=== PATIENT | female | born 1955 | race Caucasian/White ===

== ENCOUNTER → 2019-10-20 13:04 | Outpatient (CLI) | payer MEDICARE, SELFPAY ==
[2019-10-20 14:03] LABS: Add Manual Diff / Slide Review NO; Basophils Absolute Auto 0 /uL (0-100); Basophils Percent Auto 0.8 % (0-2); Eosinophils Absolute Auto 200 /uL (0-450); Eosinophils Percent Auto 5.2 % (2-4); Hematocrit 44.6 % (36-46); Lymphocytes Absolute Auto 1200 /uL (1100-4500); Lymphocytes Percent Auto 25.5 % (25-40); Mean Corpuscular HGB Conc 35.8 % (30-36); Mean Corpuscular Hemoglobin 31.1 PG (26-34); Monocytes Absolute Auto 300 /uL (0-900); Monocytes Percent Auto 5.7 % (3-14); Neutrophils Absolute Auto 2900 /uL (1500-7000); Neutrophils Percent Auto 62.8 % (50-75); Platelet Count 249 X10^3/uL (150-400); Red Blood Cell Count 5.13 X10^6/uL (4.0-5.2); Red Cell Distribution Width 13.1 % (11.6-14.8); White Blood Cell Count 4.6 X10^3/uL (4.5-11.0)
[2019-10-20 15:59] LABS: Alanine Aminotransferase 19 IU/L (<35); Albumin 4.7 g/dL (3.5-5.0); Albumin Globulin Ratio 1.3 (1.0-2.8); Alkaline Phosphatase 57 U/L (38-126); Aspartate Aminotransferase 34 IU/L (14-36); BUN Creatinine Ratio 22.8 (6-22); Bilirubin Total 0.6 mg/dL (0.2-1.3); Blood Urea Nitrogen 18 mg/dL (7-17); Carbon Dioxide 29 mmol/L (22-32); Chloride 105 mmol/L (98-107); Creatine Kinase 161 U/L (30-135); Estimated Glomerular Filt Rate > 60.0 mL/min (>60); Globulin 3.7 g/dL (1.7-4.1); Glucose 118 mg/dL (80-110); HEMOLYSIS < 15 (0-50); Potassium 5.1 mmol/L (3.4-5.1); Sodium 138 mmol/L (137-145); Total Protein 8.4 g/dL (6.3-8.2)
[2019-10-20 16:02] LABS: C-Reactive Protein Quant < 0.5 mg/dL (<1.0)
[2019-10-20 16:12] LABS: CKMB % Relative Index 0.7 % (1.5-5.0); Creatine Kinase MB 1.15 ng/mL (<2.37)
[2019-10-20 18:22] LABS: Erythrocyte Sedimentation Rate 11 MM/HR (0-20)
[2019-10-22 11:10] LABS: Cholesterol, Total 242 mg/dL (100-199); HDL-Cholesterol 61 mg/dL (>39); HDL-Particle (Total) 46.1 umol/L (>=30.5); LDL Particle 1681 nmol/L (<1000); LDL Size 20.2 nm (>20.5); LDL-Cholsterol 138 mg/dL (0-99); LP-IR Score 74 (<=45); Small LDL- Particle 1058 nmol/L (<=527); Triglycerides 215 mg/dL (0-149)
== END ==
PROVIDERS: PCP Family Medicine; Referring Provider Specialist; Visit Provider Specialist
DX: R74.8 Abnormal levels of other serum enzymes (principal); I10 Essential (primary) hypertension; R00.2 Palpitations; E78.5 Hyperlipidemia, unspecified
CPT/HCPCS: 80053; 80061; 82550; 82553; 83704; 85025; 85651; 86140

== ENCOUNTER → 2020-05-14 11:34 | Outpatient (CLI) | payer MEDICARE, OTHER, SELFPAY ==
--- NOTE | 2020-05-14 | DI.MRI.S_ITS ---
PROCEDURE: MR HEAD/BRAIN WO CON INDICATIONS: ROUTINE SCREENING MAMMOGRAM,AMNESIA,POSTMENOPAUSAL TECHNIQUE: Non-contrast axial T1 spin echo, axial T2 fast spin echo, sagittal and axial FLAIR, coronal T2 fast spin echo, axial gradient echo, axial diffusion and ADC through the brain. COMPARISON: [facility], MR, BRAIN WITHOUT CONTRAST, 06/22/2015, 17:31. [facility], CT, HEAD WITHOUT CONTRAST, 06/07/2015, 12:18. FINDINGS: Image quality: Excellent. CSF spaces: Ventricles appear symmetric in size and shape. Basal cisterns are patent. No extra-axial fluid collections. Brain: No intracranial bleeds or mass effects. There is mild cerebral volume loss for age. There are mild periventricular and deep white matter chronic small vessel ischemic changes. Brainstem appears normal. Diffusion-weighted images show no acute ischemic insults. No chronic ischemic insults. Normal intravascular flow voids are present. Skull and face: Calvarial bone marrow is normal in signal. Orbits are normal. Sinuses: Sinuses and mastoids are clear. IMPRESSION: 1. No acute intracranial disease process.. Two. No areas of acute or chronic infarction. 3. No abnormal intracranial mass or mass effect. 4. Mild, diffuse cerebral volume loss. 5. Mild periventricular and subcortical white matter chronic microvascular ischemic change. Dictated by: Patrizia Melendez MD, PhD on 05/14/2020 at 15:40 Approved by: Patrizia Melendez MD, PhD on 05/14/2020 at 15:44
--- NOTE | 2020-05-14 | DI.MG.S_ITS ---
BILATERAL DIGITAL SCREENING MAMMOGRAM 3D/2D WITH CAD: 05/14/2020 CLINICAL: Routine screening. Comparison is made to exams dated: 03/29/2019 mammogram, 01/13/2018 mammogram, and 01/07/2017 mammogram - outside location. There are scattered fibroglandular elements in both breasts. Current study was also evaluated with a Computer Aided Detection (CAD) system. No significant masses, calcifications, or other findings are seen in either breast. There has been no significant interval change. IMPRESSION: NEGATIVE There is no mammographic evidence of malignancy. A 1 year screening mammogram is recommended. This exam was interpreted at Station ID: [id number]. NOTE: For mammograms, a report in lay terms will be sent to the patient. Approximately 15% of breast malignancies will not be visualized mammographically. In the management of a palpable breast mass, a negative mammogram must not discourage biopsy of a clinically suspicious lesion. Electronically Signed By: Rolf Valenzuela M.D. at/[place]:05/14/2020 15:59:30 letter sent: Normal Exam ACR BI-RADS Category 1: Negative 3341F
== END ==
PROVIDERS: PCP Family Medicine; Referring Provider Family Medicine; Visit Provider Family Medicine
DX: R41.3 Other amnesia (principal); Z12.31 Encounter for screening mammogram for malignant neoplasm of breast; M85.852 Other specified disorders of bone density and structure, left thigh; Z78.0 Asymptomatic menopausal state; Z82.62 Family history of osteoporosis
CPT/HCPCS: 70551; 77063; 77067; 77080

== ENCOUNTER → 2021-04-29 13:21 | Outpatient (CLI) | payer MEDICARE, OTHER, SELFPAY ==
[2021-04-29 16:35] LABS: COVID19 -Nasal RAPID Negative (Negative)
== END ==
PROVIDERS: PCP Family Medicine; Referring Provider Nurse Practitioner Family; Visit Provider Nurse Practitioner Family
DX: Z01.812 Encounter for preprocedural laboratory examination (principal); Z20.822 Contact with and (suspected) exposure to COVID-19
CPT/HCPCS: 87635; C9803

== ENCOUNTER 2021-04-30 13:25 | Day surgery (SDC) | payer MEDICARE, OTHER, SELFPAY ==
--- NOTE | 2021-04-30 13:45 | PM.HP.1 ---
History of Present Illness History of Present Illness Date Patient Seen: 04/30/21 Time Patient Seen: 13:45 Chief complaint: DX COLONOSCOPY W/POSS BX Narrative: Personal history of colon polyps here for colonoscopy. Asymptomatic. Patient History Medical History Abnormal Pap smear of cervix (1977) Ankle fracture (1959) Chicken pox (1955) Hypertension (2011) Mumps (1956) TGA (transient global amnesia) (05/2015) Surgical History Anesthesia History of section (1984) History of section (1986) History of section (1991) History of section (1993) History of dilation and curettage (1989) History of dilation and curettage (1991) Family & Social History Family History Father Cardiomyopathy Bladder cancer Heart disease Hypertension Stroke Cancer Mother Arthritis Vaginal cancer Cancer Mental health problem Brother Meniere's disease Sister No problems noted. Grandfather [place] (myocardial infarction) Heart disease Grandmother Kidney failure Review of Systems Review of Systems ROS: Yes All systems reviewed with the patient and are negative except as otherwise documented Exam Const General: cooperative and comfortable Orientation: alert HENMT Head: normocephalic Ears: external ears normal Nose: external nose normal Face and sinus: normal facial exam Mouth: oral mucosae normal Eyes General: appearance normal, both eyes and all related structures Neck Neck: normal visual inspection Chest Chest: normal inspection of the chest Resp Effort & Inspection: normal respiratory effort Cardio Rate: regular rate GI Inspection: normal to inspection Skin General: no rashes or lesions noted and No jaundice Neuro General: patient alert and moves all extremities Cognition: normal cognition Speech: speech normal Extrem General: no pedal edema Psych Appearance: grossly normal Assessment & Plan Assessment & Plan narrative: 65-year-old female with personal history of colon polyps. Colonoscopy is planned for today. Time Spent With Patient Critical Care time: I spent a total of [] minutes of critical care time on this patient's care today; this time is exclusive of procedural time.
--- NOTE | 2021-04-30 13:46 | PM.PREOP ---
Pre-operative Note COVID-19 COVID-19 status: Negative Result date/Date tested (Pos, Neg/Pending): 04/29/21 Interval Note History & Physical reviewed/Exam performed by Physician: Yes Changes to H&P: No ASA Class (for procedural sedation): II
[2021-04-30 13:49] VITALS: BP 161/92; PULSE 76; RESP 16; TEMP 37.1; O2SAT 99; BMI 24.7
[2021-04-30] MEDS: SODIUM CHLORIDE 0.9% 1,000 ML 84 ML IV (14:09)
--- NOTE | 2021-04-30 14:32 | PM.OP.COLON ---
Operative Date/Time/Diagnoses Date of procedure: 04/30/21 Time of procedure: 14:32 Pre-op diagnosis: Colon cancer screening personal history of colon polyps Post-op diagnosis: same Procedure & Clinicians Study performed: Colonoscopy Same procedure as scheduled: Yes Indications: Personal history of colon polyps Surgeon: Efrem Leavitt Procedure Notes SCOAP/Timeout: Done Procedure in detail: After the risks and benefits were explained, written and verbal informed consent was obtained. The patient was brought into the procedure room and placed into the left lateral decubitus position. Conscious sedation medication was applied as per nursing documentation. Digital rectal examination was accomplished. The scope was introduced into the patient and advanced under direct visualization to the cecum as identified by the appendiceal orifice and ileocecal valve. The scope was slowly withdrawn to carefully examine the mucosa for any defects or lesions. Comprehensive imaging was accomplished throughout the rectum including the dentate line. The colon was decompressed, the scope was then removed from the patient who tolerated the procedure well. Scope withdrawal time: 6 minutes Sedation minutes: 12 Specimen(s): none sent Complications: none Impression: Patient had moderate internal hemorrhoids with hypertrophied anal papillae. Grade 1. Diverticulosis was noted in the sigmoid. Otherwise no significant polyps mass lesions or inflammatory features identified throughout. Endoscopic diagnosis 1. Diverticulosis 2. Grade 1 hemorrhoids Post-procedure Recommendations: Colonoscopy in 5 years Plan for aftercare: Considering past history of colon polyps, repeat colonoscopy is suggested for 5 years time. Disposition: PACU
[2021-04-30 14:36] VITALS: BP 101/66; PULSE 72; RESP 14; TEMP 36.7; O2SAT 95
[2021-04-30 14:40] VITALS: BP 117/74; PULSE 70; RESP 10; O2SAT 96
[2021-04-30 14:45] VITALS: BP 112/74; PULSE 75; RESP 14; O2SAT 98
[2021-04-30 15:00] VITALS: BP 146/82; PULSE 64; RESP 11; TEMP 36.2; O2SAT 98
[2021-04-30 15:10] VITALS: BP 128/80; PULSE 67; RESP 11; O2SAT 99
== END 2021-04-30 15:20 | disposition home or self-care (01) ==
LOC: ENDO 13:27
PROVIDERS: PCP Family Medicine; Referring Provider Internal Medicine Gastroenterology; Visit Provider Internal Medicine Gastroenterology
PROC: 0DJD8ZZ Inspection of Lower Intestinal Tract, Via Natural or Artificial Opening Endoscopic (ICD-10-PCS; CPT 45378; principal; 2021-04-30 14:00)
DX: Z12.11 Encounter for screening for malignant neoplasm of colon (principal); Z86.010 Personal history of colon polyps; I10 Essential (primary) hypertension; K57.30 Diverticulosis of large intestine without perforation or abscess without bleeding; K64.0 First degree hemorrhoids
CPT/HCPCS: G0105; J2704

== ENCOUNTER → 2021-06-07 14:51 | Outpatient (CLI) | payer MEDICARE, OTHER, SELFPAY ==
--- NOTE | 2021-06-07 | DI.MG.S_ITS ---
BILATERAL DIGITAL SCREENING MAMMOGRAM 3D/2D WITH CAD: 06/07/2021 CLINICAL: Routine screening. Comparison is made to exams dated: 05/14/2020 mammogram - [facility], 03/29/2019 mammogram, and 01/13/2018 mammogram - outside location. There are scattered fibroglandular elements in both breasts. Current study was also evaluated with a Computer Aided Detection (CAD) system. No significant masses, calcifications, or other findings are seen in either breast. There has been no significant interval change. IMPRESSION: NEGATIVE There is no mammographic evidence of malignancy. A 1 year screening mammogram is recommended. This exam was interpreted at Station ID: [id number]. NOTE: For mammograms, a report in lay terms will be sent to the patient. Approximately 15% of breast malignancies will not be visualized mammographically. In the management of a palpable breast mass, a negative mammogram must not discourage biopsy of a clinically suspicious lesion. Electronically Signed By: Rolf clemons/[place]:06/07/2021 18:00:46 letter sent: Normal Exam ACR BI-RADS Category 1: Negative 3341F
== END ==
PROVIDERS: PCP Family Medicine; Referring Provider Family Medicine; Visit Provider Family Medicine
DX: Z12.31 Encounter for screening mammogram for malignant neoplasm of breast (principal)
CPT/HCPCS: 77063; 77067

== ENCOUNTER 2022-04-15 14:45 | Observation (INO) | payer MEDICARE, OTHER, SELFPAY ==
[2022-04-15] VITALS (9 sets, daily range): BP systolic 136–173; BP diastolic 85–107; PULSE 70–117; RESP 16–24; TEMP 36.6–36.8; O2SAT 95–98; BMI 25.2
--- NOTE | 2022-04-15 15:26 | DI.CT.S_ITS ---
PROCEDURE: CT STROKE INDICATIONS: Altered mental status TECHNIQUE: Noncontrast 4.5 mm thick angled axial sections acquired from the foramen magnum to the vertex, with coronal reformats. For radiation dose reduction, the following was used: automated exposure control, adjustment of mA and/or kV according to patient size. COMPARISON: [facility], CT, HEAD WITHOUT CONTRAST, 06/07/2015, 12:18. FINDINGS: Image quality: Excellent. CSF spaces: Basal cisterns are patent. No extra-axial fluid collections. Ventricles are normal in size and shape. Brain: No midline shift. No intracranial masses or hemorrhage. Funez-white matter interface is normal. Punctate calcifications are redemonstrated within the bilateral caudate lobes. Skull and face: Calvarium and visualized facial bones are intact, without suspicious lesions. Sinuses: Visualized sinuses and mastoids are clear. IMPRESSION: 1. No acute intracranial findings. These findings were discussed with Dr. Rajput at 3:44 p.m. On April 15, 2022. This study fulfills neurological imaging criteria for inclusion or exclusion of acute stroke therapies based on available published neurological imaging guidelines. Dictated by: Urvashi Nix M.D. on 04/15/2022 at 15:41 Approved by: Urvashi Nix M.D. on 04/15/2022 at 15:44
--- NOTE | 2022-04-15 15:28 | ED.NEUROSD ---
HPI - Neuro Symptoms/Deficit General Chief Complaint: Neuro Symptoms/Deficit Stated Complaint: global amnesia event Time Seen by Provider: 04/15/22 15:26 History of Present Illness HPI Narrative: Blood sugar done by triage nurse. Please see notes. Patient brought here by for altered mental status/repeating questions onset at 1:00 p.m. this afternoon 1.5 hours ago. Patient and were at patient's mother's today it was expected. Patient states she does recall driving to the but does not recall anything from the . Nor does she remember anything from [place] 2 days ago. Her symptoms are improving according to . Patient had similar event in the past with transient global amnesia, she was working out at the gym and had called a friend and had repeated the same sentences over and over again. No prior history of TIA or stroke. Patient states not been under a lot of stress for mother's , she was actually happy for the to celebrate her life. However she does not remember Dr. Collins being at the or talking to him. She denies any headache. No history of seizure activity or past seizures. No drugs or alcohol. Patient in no distress and speaking calmly. Fast exam is negative. Code stroke was activated. On Anticoagulants: No Related Data Home Medications Medication Instructions Recorded Confirmed aspirin 81 mg tablet,delayed 81 mg PO DAILY 04/30/21 04/15/22 release latanoprost 0.005 % eye drops 1 drp EYE-BOTH DAILY 04/30/21 04/15/22 lisinopril 5 mg tablet 5 mg PO DAILY 04/30/21 04/15/22 dorzolamide 22.3 mg-timolol 6.8 1 drp EYE-BOTH BID 04/15/22 04/15/22 mg/mL eye drops ezetimibe 10 mg tablet 10 mg PO DAILY 04/15/22 04/15/22 Allergies Allergy/AdvReac Type Severity Reaction Status Date / Time No Known Drug Allergies Allergy Verified 04/30/21 13:49 Review of Systems Review of Systems Narrative: GENERAL: negative chills, fatigue, malaise, fever, sweats. HEENT: negative sinus pain, ear pain, sore throat RESPIRATORY: negative dyspnea, cough CARDIOVASCULAR: negative chest pain, palpitations GASTROINTESTINAL: negative nausea, vomiting, abdominal pain : negative dysuria, frequency, hematuria MUSCULOSKELETAL: negative muscle or bony pain SKIN: negative rash, skin lesions NEUROLOGIC: negative weakness, numbness, positive altered mental status, negative slurred speech negative headache negative facial droop ROS Unobtainable: All systems reviewed & are unremarkable except as noted in HPI and below Hematologic/Lymphatic On Anticoagulants: No Patient History Medical History Abnormal Pap smear of cervix (1977) Ankle fracture (1959) Chicken pox (1955) Hypertension (2011) Mumps (1956) TGA (transient global amnesia) (05/2015) Surgical History Anesthesia History of section (1984) History of section (1986) History of section (1991) History of section (1993) History of dilation and curettage (1989) History of dilation and curettage (1991) Family History Father Cardiomyopathy Bladder cancer Heart disease Hypertension Stroke Cancer Mother Arthritis Vaginal cancer Cancer Mental health problem Brother Meniere's disease Sister No problems noted. Grandfather HI (myocardial infarction) Heart disease Grandmother Kidney failure Social History household members: spouse Smoking Status: Never smoker alcohol intake: never Smoking Status: Never smoker Substance Use Type: does not use Exam Narrative Exam Narrative: GENERAL: in no distress, not toxic not dyspneic HEAD: Normocephalic. EYES: Pupils equal round No scleral icterus. PERRLA ENT: Mucous membranes moist. NECK: Trachea midline. CARDIOVASCULAR: Regular rate and rhythm without murmurs RESPIRATORY: Clear to auscultation. Breath sounds equal bilaterally. No wheezes, rales, or rhonchi. GASTROINTESTINAL: Abdomen soft, non-tender EXTREMITIES: No gross deformities. BACK: No flank tenderness. NEURO: AOx4.Clear speech no facial droop. ?Light touch intact to bilateral face hands and legs. ?Strong equal [facility] bilaterally and ankle flexion hip flexion and knee flexion. ?Strong bilateral patellar reflexes. ?No pronator drift. ?Finger to nose intact bilaterally SKIN: Warm and dry PSYCH: Not anxious, is cooperative Initial Vital Signs Initial Vital Signs: Vital Signs Temperature 98.3 F 04/15/22 15:15 Pulse Rate 70 04/15/22 15:15 Respiratory Rate 16 04/15/22 15:15 Blood Pressure 173/107 H 04/15/22 15:15 Pulse Oximetry 98 04/15/22 15:15 Oxygen Delivery Method 04/15/22 15:15 Scores NIH Stroke Scale Level of Conciousness: Alert, keenly responsive Ask month/age: Answers both questions correctly. Open/close eyes, close hand: Performs both tasks correctly Best gaze horizontal: Normal Visual beard: No visual loss Facial palsy: Normal symetrical movement Left arm drift: No drift for full 10 sec Right arm drift: No drift for full 10 sec Left leg drift: No drift for full 5 sec Right leg drift: No drift for full 5 sec Limb ataxia: Absent Sensory on face/arms/legs: Normal, no sensory loss Best language: No aphasia, normal Dysarthria: Normal Extinction or inattention: No abnormality Total NIH Stroke scale score: 0 Course Course Course Narrative: No new issues during course of stay 3:44 p.m.. Spoke with radiologist, head CT without contrast no acute process. Decision to Admit Date: 04/15/22 Decision to Admit time: 15:33 Orders Ordered: Discontinued Medications Acetaminophen (Acetaminophen 325 Mg Tablet) 650 mg PO Q6H PRN PRN Reason: Fever/Mild Pain (1-3) Aspirin (Aspirin Ec 81 Mg Tablet) 81 mg PO DAILY [facility] Last Admin: 04/16/22 08:39 Dose: 81 mg Documented By: JOSE Atorvastatin Calcium (Atorvastatin 20 Mg Tablet) 40 mg PO BEDTIME [facility] Last Admin: 04/15/22 20:14 Dose: 40 mg Documented By: OSCAR Enoxaparin Sodium (Enoxaparin 40 Mg/0.4 Ml Syringe) 40 mg SUBCUT DAILY [facility] Last Admin: 04/16/22 08:39 Dose: 40 mg Documented By: JOSE Thiamine HCl 500 mg/ Sodium (Chloride) 105 mls @ 420 mls/hr IV NOW ONE Stop: 04/15/22 17:46 Last Admin: 04/15/22 18:36 Dose: 420 mls/hr Documented By: YAZMIN Metoprolol Tartrate (Metoprolol Tartrate 5 Mg/5 Ml Inj) 5 mg IV Q15M PRN PRN Reason: Tachyarrhythmias Stop: 04/15/22 21:31 Metoprolol Tartrate (Metoprolol Tartrate 5 Mg/5 Ml Inj) 5 mg IV Q15M PRN PRN Reason: SBP > 180, DBP > 100, HR > 110 sustained > 30m Ondansetron HCl (Ondansetron 4 Mg/2 Ml Inj) 4 mg IV Q8HR PRN PRN Reason: Nausea And Vomiting Sodium Chloride (Sodium Chloride 0.9% Flush) 10 ml IV PRN PRN PRN Reason: Flush Sodium Chloride (Sodium Chloride 0.9% Flush) 10 ml IV BID [facility] Last Admin: 04/16/22 08:49 Dose: Not Given Documented By: CLL Reevaluation(s) Reevaluation #1: Reassessment of patient. Patient and state not worsening symptoms but not improving. Patient does not recall going to CAT scan imaging. Still no motor numbness tingling weakness or slurred speech or facial droop. Only memory loss Time: 16:32 Reevaluation #2: Updated patient and results. Patient is slowly improving with her repeating sentences and questions. They do understand agree for admit for observation and balance of workup including echocardiogram and MRI of the brain Time: 17:45 Consultations Consultation #1: Spoke with Dr. Koroma, [facility] stroke team/neurology. At this time will hold on tPA. He will review with his attending provider. CT head and angiogram have been sent to their facility. Time: 16:32 Consultation #2: Spoke with Dr. Koroma, tele stroke, he has reviewed with his attending, this is likely not TIA/stroke. However patient could be admitted for observation MRI echo in the morning. Patient can have outpatient referral for EEG to be done. One of the differential diagnosis includes seizure. Regarding the left MCA aneurysm can be followed up with neurosurgical services. Patient is not tPA candidate Time: 16:43 Consultation #3: Spoke with hospitalist, dr goldberg, will admit patient, recommends thiamine 500 mg IV Vital Signs Vital signs: Vital Signs - 8 hr 04/15/22 15:15 04/15/22 16:30 04/15/22 17:00 Temperature 98.3 F Pulse Rate 70 106 H 103 H Respiratory Rate 16 18 20 Blood Pressure 173/107 H 137/87 143/85 H Pulse Oximetry 98 97 97 Oxygen Delivery Method Room Air Room Air Room Air 04/15/22 17:33 Temperature Pulse Rate 102 H Respiratory Rate 18 Blood Pressure 143/90 H Pulse Oximetry 98 Oxygen Delivery Method Room Air MDM - Neuro Symptoms/Deficit Differential Diagnosis Differential diagnosis: Likely subarachnoid hemorrhage, cerebrovascular accident, transient cerebral ischemia and other (Transient global amnesia/seizure/anxiety) Lab Data Result diagrams: 04/16/22 02:07 04/16/22 02:07 Labs: Lab Results 04/15/22 04/15/22 04/15/22 Range/Units 15:25 15:25 15:25 WBC 5.8 (4.5-11.0) X10^3/uL RBC 4.97 (4.0-5.2) X10^6/uL Hgb 15.3 (12.0-16.0) g/dL Hct 43.5 (36-46) % MCV 87.5 (80-100) fL MCH 30.8 (26-34) PG MCHC 35.2 (30-36) % RDW 13.2 (11.6-14.8) % Plt Count 282 (150-400) X10^3/uL Neut % (Auto) 60.5 (50-75) % Lymph % (Auto) 27.9 (25-40) % Crosby % (Auto) 6.6 (3-14) % Eos % (Auto) 4.3 H (2-4) % Baso % (Auto) 0.7 (0-2) % Neut # (Auto) 3500 (4915-8416) /uL Lymph # (Auto) 1600 (1145-5905) /uL Crosby # (Auto) 400 (0-900) /uL Eos # (Auto) 300 (0-450) /uL Baso # (Auto) 0 (0-100) /uL PT 11.8 (10.1-12.7) SECONDS INR 1.0 (0.9-1.3) APTT 31 (26-36) SECONDS Sodium 139 (137-145) mmol/L Potassium 4.1 (3.4-5.1) mmol/L Chloride 100 (98-107) mmol/L Carbon Dioxide 26 (22-32) mmol/L BUN 14 (7-17) mg/dL Creatinine 0.71 (0.52-1.04) mg/dL Estimated GFR > 60 (>60) mL/min BUN/Creatinine Ratio 19.7 (6-22) Glucose 102 (80-110) mg/dL Calcium 9.1 (8.4-10.2) mg/dL Total Bilirubin 0.5 (0.2-1.3) mg/dL AST 34 (14-36) IU/L ALT 27 (<35) IU/L Alkaline Phosphatase 78 (38-126) U/L Total Creatine Kinase 125 (30-135) U/L CK-MB (CK-2) 0.97 (<2.37) ng/mL CK-MB (CK-2) Rel Index 0.8 L (1.5-5.0) % Troponin I < 0.012 (0.01-0.034) ng/mL Total Protein 9.1 H (6.3-8.2) g/dL Albumin 4.8 (3.5-5.0) g/dL Globulin 4.3 H (1.7-4.1) g/dL Albumin/Globulin Ratio 1.1 (1.0-2.8) Urine Color Urine Appearance Urine pH (4.5-8.0) Ur Specific [place] (1.000-1.035) Urine Protein (Negative) Urine Glucose (UA) (Negative) g/dL Urine Ketones (NEGATIVE) Urine Occult Blood (Negative) Urine Nitrate (Negative) Urine Bilirubin (NEGATIVE) Urine Urobilinogen (0.2) E.U./dL Ur Leukocyte Esterase (NEGATIVE) Urine RBC (0-5/HPF) Urine WBC (0-5/HPF) Ur Squamous Epith Cells (0-5/HPF) Urine Bacteria (None) Ur Culture Indicated? 04/15/22 Range/Units 17:35 WBC (4.5-11.0) X10^3/uL RBC (4.0-5.2) X10^6/uL Hgb (12.0-16.0) g/dL Hct (36-46) % MCV (80-100) fL MCH (26-34) PG MCHC (30-36) % RDW (11.6-14.8) % Plt Count (150-400) X10^3/uL Neut % (Auto) (50-75) % Lymph % (Auto) (25-40) % Crosby % (Auto) (3-14) % Eos % (Auto) (2-4) % Baso % (Auto) (0-2) % Neut # (Auto) (0063-2964) /uL Lymph # (Auto) (0283-9361) /uL Crosby # (Auto) (0-900) /uL Eos # (Auto) (0-450) /uL Baso # (Auto) (0-100) /uL PT (10.1-12.7) SECONDS INR (0.9-1.3) APTT (26-36) SECONDS Sodium (137-145) mmol/L Potassium (3.4-5.1) mmol/L Chloride (98-107) mmol/L Carbon Dioxide (22-32) mmol/L BUN (7-17) mg/dL Creatinine (0.52-1.04) mg/dL Estimated GFR (>60) mL/min BUN/Creatinine Ratio (6-22) Glucose (80-110) mg/dL Calcium (8.4-10.2) mg/dL Total Bilirubin (0.2-1.3) mg/dL AST (14-36) IU/L ALT (<35) IU/L Alkaline Phosphatase (38-126) U/L Total Creatine Kinase (30-135) U/L CK-MB (CK-2) (<2.37) ng/mL CK-MB (CK-2) Rel Index (1.5-5.0) % Troponin I (0.01-0.034) ng/mL Total Protein (6.3-8.2) g/dL Albumin (3.5-5.0) g/dL Globulin (1.7-4.1) g/dL Albumin/Globulin Ratio (1.0-2.8) Urine Color Yellow Urine Appearance Clear Urine pH 7.0 (4.5-8.0) Ur Specific [place] <=1.005 (1.000-1.035) Urine Protein Negative (Negative) Urine Glucose (UA) Negative (Negative) g/dL Urine Ketones Negative (NEGATIVE) Urine Occult Blood Negative (Negative) Urine Nitrate Negative (Negative) Urine Bilirubin Negative (NEGATIVE) Urine Urobilinogen 0.2 (0.2) E.U./dL Ur Leukocyte Esterase Trace H (NEGATIVE) Urine RBC 0-1/hpf (0-5/HPF) Urine WBC None seen (0-5/HPF) Ur Squamous Epith Cells 0-1 /hpf (0-5/HPF) Urine Bacteria None seen (None) Ur Culture Indicated? Cult not indicated Point of Care Testing Glucose POC [address] scan - head: Radiologist's Impression: [address] [address] [address] Scan Report Signed Patient: Kana Davis MR#: [id number] : 1955 Acct:[id number] Age/Sex: 66 / F Date of Service: 04/15/22 Loc: ED Accession Number: [id number] ?? Procedure: CT Stroke Ordering Provider: Nikolai Rajput MD PROCEDURE:? CT STROKE ? INDICATIONS:? Altered mental status ? TECHNIQUE:? Noncontrast 4.5 mm thick angled axial sections acquired from the foramen magnum to the vertex, with coronal reformats.? For radiation dose reduction, the following was used:? automated exposure control, adjustment of mA and/or kV according to patient size.? ? COMPARISON:? [facility], CT, HEAD WITHOUT CONTRAST, 06/07/2015, 12:18. ? FINDINGS:? Image quality:? Excellent.? ? CSF spaces:? Basal cisterns are patent.? No extra-axial fluid collections.? Ventricles are normal in size and shape.? ? Brain:? No midline shift.? No intracranial masses or hemorrhage.? Funez-white matter interface is normal.? Punctate calcifications are redemonstrated within the bilateral caudate lobes. ? Skull and face:? Calvarium and visualized facial bones are intact, without suspicious lesions.? ? Sinuses:? Visualized sinuses and mastoids are clear.? ? IMPRESSION:? ? 1. No acute intracranial findings. ? These findings were discussed with Dr. Rajput at 3:44 p.m. On April 15, 2022.? ? This study fulfills neurological imaging criteria for inclusion or exclusion of acute stroke therapies based on available published neurological imaging guidelines.? ? ? Dictated by: Urvashi Nix M.D. on 04/15/2022 at 15:41 ? ? Approved by: Urvsahi Nix M.D. on 04/15/2022 at 15:44 ? CTA - brain/neck: Radiologist's Impression: [address] [address] [address] Scan Report Signed Patient: Kana Davis MR#: [id number] : 1955 Acct:[id number] Age/Sex: 66 / F Date of Service: 04/15/22 Loc: ED Accession Number: [id number] ?? Procedure: CT angio head and neck Ordering Provider: Nikolai Rajput MD PROCEDURE:? CT ANGIO HEAD AND NECK ? INDICATIONS:? Altered mental status ? TECHNIQUE:? After the administration of intravenous contrast, 1 mm thick sections acquired from the aortic arch through the [place] of [place].? Post-contrast 4.5 mm thick sections then re-acquired from the foramen magnum to the vertex.? 3-dimensional dhrehop-ybbxlixdc-pplxwegxty (MIP) and/or volume rendering reformats were acquired of the central intracranial vasculature and neck separately. For radiation dose reduction, the following was used:? automated exposure control, adjustment of mA and/or kV according to patient size.? ? COMPARISON:? [facility], CT, CT STROKE, 04/15/2022, 15:33. ? FINDINGS:? Image quality:? Excellent.? ? BRAIN:? CSF spaces:? Ventricles are normal in size and shape.? Basal cisterns are patent.? No extra-axial fluid collections.? ? Brain:? No midline shift.? No intracranial bleeds or masses.? Funez-white matter interface appears intact.? ? Skull and face:? Calvarium and facial bones appear intact, without suspicious lesions.? Orbits appear normal.? ? Sinuses:? Sinuses and mastoids are clear.? ? HEAD CT ANGIOGRAPHY:? Anterior circulation:? Intracranial internal carotid arteries are normal in size and flow.? 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 Normal flow in the anterior communicating artery.? The flow within the paired anterior cerebral arteries is normal and symmetric.? The flow within the middle cerebral arteries is normal and symmetric.? 4 millimeter aneurysm noted at the left middle cerebral artery trifurcation.? ? Posterior circulation:? Visualized portions of the vertebral arteries demonstrate normal caliber.? Left vertebral artery terminates in a left posterior inferior cerebral artery which is a congenital anatomic variant.? Normal flow in the basilar artery.? Flow within the posterior cerebral arteries is normal and symmetric.? Right and left posterior cerebral arteries have origins which is a congenital anatomic variant.? No aneurysms are seen. ? Dural sinuses demonstrate normal postcontrast enhancement. ? ? NECK CT ANGIOGRAPHY:? Carotid system:? The great vessels demonstrate a conventional anatomy as they arise from the aortic arch.? The origins of the common carotid arteries appear patent.? The common carotid arteries demonstrate normal caliber and courses.? The bifurcation regions are both widely patent.? The internal carotid arteries demonstrate normal calibers and courses.? ? Posterior circulation:? The origins of the vertebral arteries both appear widely patent.? The more superior extracranial portions of both vertebral arteries also demonstrate normal courses and calibers.? Patient is right vertebral artery dominant.? Left vertebral artery terminates in a left posterior inferior cerebral artery. ? Soft tissues:? Visualized neck soft tissues demonstrate no suspicious abnormalities.? ? Bones:? No suspicious bony lesions.? Visualized cervical spine appears normally aligned.? Spine degenerative disc disease and facet arthropathy. ? ? IMPRESSION:? ? 1. No acute intracranial disease process. ? 2. No large vessel occlusion, hemodynamically significant vascular stenosis or vascular dissection. ? 3.? 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 Recommend neurosurgical consultation. ? ? Any quantitative measurements of stenosis were performed using NASCET criteria.? ? ? Dictated by: Patrizia Melendez MD, PhD on 04/15/2022 at 15:57 ? ? Approved by: Patrizia Melendez MD, PhD on 04/15/2022 at 16:07 ? ECG Data Interpretation: Sinus tachycardia rate 105 otherwise normal EKG no ST elevation or depression MDM Narrative Medical decision making narrative: Appropriate for admission. Patient is still symptomatic but is improving. Will need balance of workup including echocardiogram and MRI brain. Spoke with patient and and agree for admit. I did review with hospitalist agrees for balance of workup. Discharge Plan Departure Patient Disposition: Admitted as Observation Clinical Impression: Transient global amnesia Admit Date/Time: 04/15/22 17:45 Admit Provider: José Miguel Goldberg
[2022-04-15 15:38] LABS: Add Manual Diff / Slide Review NO; Basophils Absolute Auto 0 /uL (0-100); Basophils Percent Auto 0.7 % (0-2); Eosinophils Absolute Auto 300 /uL (0-450); Eosinophils Percent Auto 4.3 % (2-4); Hematocrit 43.5 % (36-46); Hemoglobin 15.3 g/dL (12.0-16.0); Lymphocytes Absolute Auto 1600 /uL (1100-4500); Lymphocytes Percent Auto 27.9 % (25-40); Mean Corpuscular HGB Conc 35.2 % (30-36); Mean Corpuscular Hemoglobin 30.8 PG (26-34); Mean Corpuscular Volume 87.5 fL (80-100); Monocytes Absolute Auto 400 /uL (0-900); Monocytes Percent Auto 6.6 % (3-14); Neutrophils Absolute Auto 3500 /uL (1500-7000); Neutrophils Percent Auto 60.5 % (50-75); Platelet Count 282 X10^3/uL (150-400); Red Blood Cell Count 4.97 X10^6/uL (4.0-5.2); Red Cell Distribution Width 13.2 % (11.6-14.8); White Blood Cell Count 5.8 X10^3/uL (4.5-11.0)
--- NOTE | 2022-04-15 15:38 | DI.CT.S_ITS ---
PROCEDURE: CT ANGIO HEAD AND NECK INDICATIONS: Altered mental status TECHNIQUE: After the administration of intravenous contrast, 1 mm thick sections acquired from the aortic arch through the [place] of [place]. Post-contrast 4.5 mm thick sections then re-acquired from the foramen magnum to the vertex. 3-dimensional baqrspc-hhemtyslv-lhwwfznffu (MIP) and/or volume rendering reformats were acquired of the central intracranial vasculature and neck separately. For radiation dose reduction, the following was used: automated exposure control, adjustment of mA and/or kV according to patient size. COMPARISON: [facility], CT, CT STROKE, 04/15/2022, 15:33. FINDINGS: Image quality: Excellent. BRAIN: CSF spaces: Ventricles are normal in size and shape. Basal cisterns are patent. No extra-axial fluid collections. Brain: No midline shift. No intracranial bleeds or masses. Funez-white matter interface appears intact. Skull and face: Calvarium and facial bones appear intact, without suspicious lesions. Orbits appear normal. Sinuses: Sinuses and mastoids are clear. HEAD CT ANGIOGRAPHY: Anterior circulation: Intracranial internal carotid arteries are normal in size and flow. 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 Normal flow in the anterior communicating artery. The flow within the paired anterior cerebral arteries is normal and symmetric. The flow within the middle cerebral arteries is normal and symmetric. 4 millimeter aneurysm noted at the left middle cerebral artery trifurcation. Posterior circulation: Visualized portions of the vertebral arteries demonstrate normal caliber. Left vertebral artery terminates in a left posterior inferior cerebral artery which is a congenital anatomic variant. Normal flow in the basilar artery. Flow within the posterior cerebral arteries is normal and symmetric. Right and left posterior cerebral arteries have origins which is a congenital anatomic variant. No aneurysms are seen. Dural sinuses demonstrate normal postcontrast enhancement. NECK CT ANGIOGRAPHY: Carotid system: The great vessels demonstrate a conventional anatomy as they arise from the aortic arch. The origins of the common carotid arteries appear patent. The common carotid arteries demonstrate normal caliber and courses. The bifurcation regions are both widely patent. The internal carotid arteries demonstrate normal calibers and courses. Posterior circulation: The origins of the vertebral arteries both appear widely patent. The more superior extracranial portions of both vertebral arteries also demonstrate normal courses and calibers. Patient is right vertebral artery dominant. Left vertebral artery terminates in a left posterior inferior cerebral artery. Soft tissues: Visualized neck soft tissues demonstrate no suspicious abnormalities. Bones: No suspicious bony lesions. Visualized cervical spine appears normally aligned. Spine degenerative disc disease and facet arthropathy. IMPRESSION: 1. No acute intracranial disease process. 2. No large vessel occlusion, hemodynamically significant vascular stenosis or vascular dissection. 3. 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 Recommend neurosurgical consultation. Any quantitative measurements of stenosis were performed using NASCET criteria. Dictated by: Patrizia Melendez MD, PhD on 04/15/2022 at 15:57 Approved by: Patrizia Melendez MD, PhD on 04/15/2022 at 16:07
[2022-04-15 15:58] LABS: Prothrombin Time 11.8 SECONDS (10.1-12.7)
[2022-04-15 16:00] LABS: PTT Partial Thromboplastin Tim 31 SECONDS (26-36)
[2022-04-15 16:13] LABS: Alanine Aminotransferase 27 IU/L (<35); Albumin 4.8 g/dL (3.5-5.0); Albumin Globulin Ratio 1.1 (1.0-2.8); Alkaline Phosphatase 78 U/L (38-126); Aspartate Aminotransferase 34 IU/L (14-36); BUN Creatinine Ratio 19.7 (6-22); Bilirubin Total 0.5 mg/dL (0.2-1.3); Blood Urea Nitrogen 14 mg/dL (7-17); Calcium 9.1 mg/dL (8.4-10.2); Carbon Dioxide 26 mmol/L (22-32); Chloride 100 mmol/L (98-107); Creatine Kinase 125 U/L (30-135); Estimated Glomerular Filt Rate > 60 mL/min (>60); Globulin 4.3 g/dL (1.7-4.1); Glucose 102 mg/dL (80-110); HEMOLYSIS < 15 (0-50); Potassium 4.1 mmol/L (3.4-5.1); Sodium 139 mmol/L (137-145); Total Protein 9.1 g/dL (6.3-8.2)
[2022-04-15 16:24] LABS: Troponin I < 0.012 ng/mL (0.01-0.034)
[2022-04-15 16:28] LABS: CKMB % Relative Index 0.8 % (1.5-5.0); Creatine Kinase MB 0.97 ng/mL (<2.37)
[2022-04-15 17:53] LABS: Appearance Urine UA CLEAR; Bilirubin Urine UA NEGATIVE (NEGATIVE); Color Urine UA YELLOW; Glucose Urine UA NEGATIVE (Negative); Ketones Urine UA NEGATIVE (NEGATIVE); Leukocyte Esterase Urine UA TRACE (NEGATIVE); Nitrite Urine UA NEGATIVE (Negative); Occult Blood Urine UA NEGATIVE (Negative); Protein Urine UA NEGATIVE (Negative); Specific Gravity Urine UA <=1.005 (1.000-1.035); Urobilinogen Urine UA 0.2 E.U./dL (0.2)
--- NOTE | 2022-04-15 17:53 | DI.MRI.S_ITS ---
PROCEDURE: MR HEAD/BRAIN WO CON INDICATIONS: TIA TECHNIQUE: Non-contrast axial T1 spin echo, axial T2 fast spin echo, sagittal and axial FLAIR, coronal T2 fast spin echo, axial gradient echo, axial diffusion and ADC through the brain. COMPARISON: [facility], CT, CT ANGIO HEAD AND NECK, 04/15/2022, 15:33. [facility], CT, CT STROKE, 04/15/2022, 15:33. FINDINGS: Image quality: Excellent. CSF spaces: Ventricles appear symmetric in size and shape. Basal cisterns are patent. No extra-axial fluid collections. Brain: No intracranial bleeds or mass effects. There is cerebral volume loss for age. There are periventricular and deep white matter chronic small vessel ischemic changes. Brainstem appears normal. Diffusion-weighted images show no acute ischemic insults. No chronic ischemic insults. Normal intravascular flow voids are present. Skull and face: Calvarial bone marrow is normal in signal. Orbits are normal. Sinuses: Sinuses and mastoids are clear. IMPRESSION: No findings of acute or subacute infarction can be seen. Note is made of age-appropriate brain parenchymal volume loss and chronic small vessel ischemic changes. Dictated by: Cedrick Harris M.D. on 04/15/2022 at 17:37 Approved by: Cedrick Harris M.D. on 04/15/2022 at 17:39
[2022-04-15 18:16] LABS: RBC Urine 0-1/HPF (0-5/HPF); Squamous Epithelial Cell Urine 0-1 /HPF (0-5/HPF); WBC Urine None Seen (0-5/HPF)
[2022-04-15 18:17] LABS: Bacteria Urine None Seen; Culture Indicated Urine Cult Not Indicated
--- NOTE | 2022-04-15 18:30 | DI.ECHO.S_ITS ---
[facility] +---------+ : : [address] : : : : [id number] : : : : Phone: [phone]+ Echocardiogram Report + + :Name: SHAWANDA ROMERO Study Date: 04/16/2022 Height: 62 in : :[facility] ReadingLocation: Weight: 137 lb : : Gender: Female BSA: 1.6 m2 : :: 1955 Age: 66 yrs BP: 136/89 mmHg: :Reason For Study: TIA : :Ordering Physician: LOBO, : :CARLINE Performed By: Jada Parsons : :Referring: CARLINE DIAMOND : + + Interpretation Summary The patient was in sinus rhythm with heart rates between 74-81 bpm during the exam. The left ventricle is normal in size and wall thickness. There is no thrombus. The ejection fraction is estimated to be 55-60%. The right ventricle is normal in size and function. No significant valvular pathology seen. There is no Doppler evidence for an interatrial shunt. Injection of contrast documented no interatrial shunt. No significant atherosclerotic plaque seen in the aortic arch. The IVC is of normal diameter and collapses greater than 50% with a sniff. This suggests a low right atrial pressure of 3 mm Hg. Procedure: A two-dimensional transthoracic echocardiogram with color flow and Doppler was performed. The study quality was technically adequate. A saline contrast injection was performed to assess for cardiac shunting. Comparison is made with the echocardiogram of 01/08/2017. The patient was in sinus rhythm with heart rates between 74-81 bpm during the exam. Left Ventricle: The left ventricle is normal in size and wall thickness. There is no thrombus. The ejection fraction is estimated to be 55-60%. There are no focal wall motion abnormalities. Diastolic parameters suggest a relaxation abnormality of the left ventricle, consistent with probable normal filling pressures. Right Ventricle: The right ventricle is normal in size and function. Atria: The left atrial size is normal. Right atrial size is normal. There is no Doppler evidence for an interatrial shunt. Injection of contrast documented no interatrial shunt. Mitral Valve: The mitral valve is normal in structure and function. There is trace mitral regurgitation. Aortic Valve: The aortic valve is trileaflet. The aortic valve opens well. There is no aortic valve stenosis. No aortic regurgitation is present. Tricuspid Valve: The tricuspid valve is normal in structure and function. There is trace tricuspid regurgitation. Pulmonary artery pressures cannot be estimated because of the lack of a measurable TR jet velocity. Pulmonic Valve: The pulmonic valve leaflets are thin and pliable; valve motion is normal. There is trace pulmonic regurgitation. Great Vessels: The aortic root is normal size. The dimensions of the ascending aorta are normal. The IVC is of normal diameter and collapses greater than 50% with a sniff. This suggests a low right atrial pressure of 3 mm Hg. Pericardium/ Pleura There is no pericardial effusion. There is an anterior echo-free space consistent with a fat pad. There is no pleural effusion. MMode/2D Measurements & Calculations LVIDd: 4.1 cm LVOT diam: 2.0 cm LVIDs: 2.9 cm Ao root diam: 2.9 cm FS: 30.1 % asc Aorta Diam: 3.1 cm EPSS: 1.1 cm Ao Arch Diam (Prox Trans): 2.7 cm IVSd: 0.84 cm LVPWd: 0.80 cm LV quinones. diameter/BSA (cm/m^2): 2.5 LV sys. diameter/BSA (cm/m^2): 1.8 LA A2 area: 17.5 cm2 RA long axis: 4.3 cm LA A4 area: 14.0 cm2 RA area: 9.8 cm2 LA length (vol): 5.0 cm RA vol: 19.1 ml LA vol: 41.9 ml RA : 11.8 ml/m2 LA vol index: 25.8 ml/m2 IVC diam: 1.8 cm RVD1 (basal): 3.0 cm RVD2 (mid): 2.9 cm TAPSE: 1.8 cm Doppler Measurements & Calculations Ao V2 max: 116.0 cm/sec LVOT Max Quentin: 69.8 cm/sec Ao V2 mean: 82.8 cm/sec LV V1 max P.9 mmHg Ao max P.4 mmHg LV V1 VTI: 16.3 cm Ao mean P.0 mmHg GIBSON(I,D): 1.9 cm2 Ao V2 VTI: 25.8 cm GIBSON(V,D): 1.9 cm2 sev ratio: 0.63 GIBSON indexed to BSA (cm^2/m^2): 1.2 MV E max quentin: 69.7 cm/sec TR max uqentin: 194.5 cm/sec MV A max quentin: 81.4 cm/sec TR max P.1 mmHg MV E/A: 0.86 PA V2 max: 67.7 cm/sec Med Peak E' Quentin: 4.8 cm/sec PA V2 mean: 54.0 cm/sec E/E' med: 14.5 PA mean P.2 mmHg Lat Peak E' Quentin: 6.0 cm/sec PA pr(Accel): 34.5 mmHg E/E' lat: 11.6 E/e' average: 13.1 MV dec time: 0.23 sec SV(LVOT): 50.2 ml Reading Physician:09:34 AM
[2022-04-15 18:34] LABS: COVID19 -Nasal RAPID Negative (Negative)
[2022-04-15] MEDS: THIAMINE 500 MG in SODIUM CHLORIDE 0.9% 100 ML 420 MG IV (18:36)
[2022-04-15] MEDS: ATORVASTATIN 20 MG TABLET 40 MG PO (20:14)
--- NOTE | 2022-04-15 20:52 | PM.HP.1 ---
History of Present Illness History of Present Illness Date Patient Seen: 04/15/22 Time Patient Seen: 18:30 Chief complaint: global amnesia event Narrative: Kana Davis is a chiquita 66-year-old female with a history of transient global amnesia(2015), glaucoma, hypertriglyceridemia, and essential hypertension who presented to the ED, brought here by for altered mental status/repeating questions onset at 1:00 p.m. this afternoon 1.5 hours prior to ED arrival.? Patient had attend her mother's the eulogy earlier in the day the patient was unable to recall the , Dr. Collins's presence or speaking with him or that [place] had occurred only a few days ago. The patient's reports that her symptoms have continued to improve in the ED and on the floor during admit exam. Patient's recall is still inconsistent and patchy. But she is able to converse easily, is relaxed and comfortable resting in bed. Patient's 2016 transient global amnesia symptoms were similar such as repetitive verbiage/sentences, sporadic memory/time line recall/loss. She had a complete neurological workup at [facility]- unknown etiology. Suspected causes significant stress and anxiety and or possible seizure activity. Patient denies history of TIA, stroke, seizure, drugs or alcohol use. Patient denies headache, fever, body aches, chills, cough, congestion, upper respiratory symptoms, numbness, tingling, weakness, difficulty with speech, impaired fine motor skills, ambulation, swallowing, falls, abdominal pain, nausea, vomiting, diarrhea, hematemesis, hematuria, melena, urinary symptoms, skin wounds are infections, recent head injury or loss of consciousness, new or different medications recent illness (exposure) injury or trauma. Patient verbalizes a significant amount of stress and anxiety recently, and appears anxious. During admit exam patient did demonstrate cyclic repetitive questions, demonstrating lack of retention/comprehension of questions and answers. 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 I felt that as we conversed it did not reflect her cognitive functional baseline of knowledge experience an information. Patient presented to the ED with initial BP 173/107, the time of admit temp 98.3?, BP 152/101, continues to be tachycardic HR 117, RR 16, O2 saturation 96% on room air. Patient's CBC CMP and liver panel troponin and urinalysis are all unremarkable, NIH:0 in ED. EKG sinus tachycardia with a rate of [address] or T-wave changes I personally reviewed. Head CT and brain MRI were negative for any acute processes at this time. 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 See notes regarding Dr. Rajput ED consult with [facility] neurosurgery. Patient admitted for altered mental status, TIA versus transient global amnesia. Per Dr. Rajput (ED):Consultation #1:Spoke with Dr. Koroma, [facility] stroke team/neurology.? At this time will hold on tPA.? He will review with his attending provider.? CT head and angiogram have been sent to their facility.Time: 16:32 Consultation #2:Spoke with Dr. Koroma, tele stroke, he has reviewed with his attending, this is likely not TIA/stroke.? However patient could be admitted for observation MRI echo in the morning.? Patient can have outpatient referral for EEG to be done.? One of the differential diagnosis includes seizure.? Regarding the left MCA aneurysm can be followed up with neurosurgical services.? Patient is not tPA candidate Time: 16:43 Patient History Medical History Abnormal Pap smear of cervix (1977) Ankle fracture (1959) Chicken pox (1955) Hypertension (2011) Mumps (1956) TGA (transient global amnesia) (05/2015) Surgical History Anesthesia History of section (1984) History of section (1986) History of section (1991) History of section (1993) History of dilation and curettage (1989) History of dilation and curettage (1991) Family & Social History Family History Father Cardiomyopathy Bladder cancer Heart disease Hypertension Stroke Cancer Mother Arthritis Vaginal cancer Cancer Mental health problem Brother Meniere's disease Sister No problems noted. Grandfather [place] (myocardial infarction) Heart disease Grandmother Kidney failure Social History: household members spouse Safety & Behavioral: Feels Safe in Current Yes Environment Been Physically Hurt or No Threatened By a Person Tobacco & Substance use: Smoking Status Never smoker alcohol intake never Substance Use Type does not use Meds Home Medications and Allergies Home Medications Medication Instructions Recorded Confirmed Type aspirin 81 mg tablet,delayed 81 mg PO DAILY 04/30/21 04/15/22 History release latanoprost 0.005 % eye drops 1 drp EYE-BOTH DAILY 04/30/21 04/15/22 History lisinopril 5 mg tablet 5 mg PO DAILY 04/30/21 04/15/22 History dorzolamide 22.3 mg-timolol 6.8 1 drp EYE-BOTH BID 04/15/22 04/15/22 History mg/mL eye drops ezetimibe 10 mg tablet 10 mg PO DAILY 04/15/22 04/15/22 History Allergies Allergy/AdvReac Type Severity Reaction Status Date / Time No Known Drug Allergies Allergy Verified 04/30/21 13:49 Review of Systems Review of Systems Narrative: All 12 point systems reviewed with the patient and are negative except otherwise documented. Exam Vital Signs (past 8 hours): - 04/15/22 15:15 04/15/22 16:30 04/15/22 17:00 Temperature 98.3 F Pulse Rate 70 106 H 103 H Respiratory Rate 16 18 20 Blood Pressure 173/107 H 137/87 143/85 H Pulse Oximetry 98 97 97 Oxygen Delivery Method Room Air Room Air Room Air Oxygen Flow Rate 04/15/22 17:33 04/15/22 17:34 04/15/22 18:00 Temperature Pulse Rate 102 H 102 H Respiratory Rate 18 22 Blood Pressure 143/90 H 147/96 H Pulse Oximetry 98 97 Oxygen Delivery Method Room Air Oxygen Flow Rate 04/15/22 18:00 04/15/22 18:30 04/15/22 18:30 Temperature Pulse Rate 104 H 117 H Respiratory Rate 24 16 Blood Pressure 152/101 H Pulse Oximetry 95 97 96 Oxygen Delivery Method Room Air Oxygen Flow Rate 0 0 04/15/22 20:15 Temperature 97.8 F Pulse Rate 105 H Respiratory Rate 18 Blood Pressure 157/93 H Pulse Oximetry 96 Oxygen Delivery Method Oxygen Flow Rate 0 Oxygen Delivery Method Room Air Oxygen Flow Rate 0 Narrative Exam Narrative: General: Patient is a well-developed, well-nourished chiquita pleasant female, resting comfortably in bed, in no distress at this time. HEENT: Normocephalic, atraumatic, extraocular muscles intact, oral pharynx is clear and mucous membranes are moist. Neck is supple and symmetric, trachea is midline, no adenopathy, no thyroid enlargement, nontender, no masses palpated. Negative for JVD Chest: Normal AP diameter and contour without kyphoscoliosis, no nasal flaring, retractions, or tachypneic labored breathing. Lungs: Auscultation of all lung beard are clear without adventitious sounds, wheezes, rhonchi, or rales. Cardio: Tachycardic regular rate and rhythm without murmur, rubs, or gallops, no carotid bruit, no cardiac pulsations present. Abdomen: Soft nontender, negative for organomegaly, or masses. Bowel sounds are present in all 4 quadrants without guarding or rebound, no CVA tenderness. Musculoskeletal: Muscle strength and tone are equal within normal limits, no deformity, crepitus, effusions, cyanosis, clubbing or edema present. Full range of motion intact radial and pedal pulses are normal. Skin: Warm dry and intact without rashes, ulcerations or petechiae. Neuro: Alert and orientated x3, strength is +5/5 in all extremities, sensation to touch intact, no gross deficits noted of cranial nerves. NIH:0 Psych: Patient has a well-kept appearance, appropriate affect, mental status attitude thought context and judgment are appropriate for age. Objective Labs Result Diagrams: 04/15/22 15:25 04/15/22 15:25 Labs: Laboratory Results - last 24 hr 04/15/22 04/15/22 04/15/22 15:25 15:25 15:25 WBC 5.8 RBC 4.97 Hgb 15.3 Hct 43.5 MCV 87.5 MCH 30.8 MCHC 35.2 RDW 13.2 Plt Count 282 Neut % (Auto) 60.5 Lymph % (Auto) 27.9 [place] % (Auto) 6.6 Eos % (Auto) 4.3 H Baso % (Auto) 0.7 Neut # (Auto) 3500 Lymph # (Auto) 1600 [place] # (Auto) 400 Eos # (Auto) 300 Baso # (Auto) 0 PT 11.8 INR 1.0 APTT 31 Sodium 139 Potassium 4.1 Chloride 100 Carbon Dioxide 26 BUN 14 Creatinine 0.71 Estimated GFR > 60 BUN/Creatinine Ratio 19.7 Glucose 102 Calcium 9.1 Total Bilirubin 0.5 AST 34 ALT 27 Alkaline Phosphatase 78 Total Creatine Kinase 125 CK-MB (CK-2) 0.97 CK-MB (CK-2) Rel Index 0.8 L Troponin I < 0.012 Total Protein 9.1 H Albumin 4.8 Globulin 4.3 H Albumin/Globulin Ratio 1.1 Urine Color Urine Appearance Urine pH Ur Specific [place] Urine Protein Urine Glucose (UA) Urine Ketones Urine Occult Blood Urine Nitrate Urine Bilirubin Urine Urobilinogen Ur Leukocyte Esterase Urine RBC Urine WBC Ur Squamous Epith Cells Urine Bacteria Ur Culture Indicated? SARS-CoV-2 (PCR) 04/15/22 04/15/22 04/15/22 17:35 18:05 18:05 WBC RBC Hgb Hct MCV MCH MCHC RDW Plt Count Neut % (Auto) Lymph % (Auto) [place] % (Auto) Eos % (Auto) Baso % (Auto) Neut # (Auto) Lymph # (Auto) [place] # (Auto) Eos # (Auto) Baso # (Auto) PT INR APTT Sodium Potassium Chloride Carbon Dioxide BUN Creatinine Estimated GFR BUN/Creatinine Ratio Glucose Calcium Total Bilirubin AST ALT Alkaline Phosphatase Total Creatine Kinase CK-MB (CK-2) CK-MB (CK-2) Rel Index Troponin I Total Protein Albumin Globulin Albumin/Globulin Ratio Urine Color Yellow Urine Appearance Clear Urine pH 7.0 Ur Specific [place] <=1.005 Urine Protein Negative Urine Glucose (UA) Negative Urine Ketones Negative Urine Occult Blood Negative Urine Nitrate Negative Urine Bilirubin Negative Urine Urobilinogen 0.2 Ur Leukocyte Esterase Trace H Urine RBC 0-1/hpf Urine WBC None seen Ur Squamous Epith Cells 0-1 /hpf Urine Bacteria None seen Ur Culture Indicated? Cult not indicated SARS-CoV-2 (PCR) Cancelled Negative Assessment & Plan Assessment & Plan narrative: Kana Davis is a chiquita 66-year-old female with a history of transient global amnesia(2016), glaucoma, hypertriglyceridemia, and essential hypertension who presented to the ED, brought here by for altered mental status. Patient admitted for altered mental status, TIA versus transient global amnesia. 1. Altered mental status, acute, TIA vs. Transient global amnesia, present on admission -Symptoms:repetitive verbiage/sentences, sporadic memory/time line recall/loss. -Consistent improvement during hospitalization. -Patient verbalizes a significant amount of stress and anxiety recently, and appears anxious. During admit exam patient did demonstrate cyclic repetitive questions, demonstrating lack of retention/comprehension of questions and answers. 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 I felt that as we conversed that her communication did not reflect her cognitive functional baseline of knowledge experience an information. -I believe that stress is a contributing factor to the patient's presentation, I have high suspicion for a neurological component as well,that requires further evaluation. (which will be addressed by [facility] and/or [facility]) -patient education provided regarding stress and anxiety management. -ED BP 173/107, admit temp 98.3?, BP 152/101, HR 117, RR 16, O2 saturation 96% on room air. -repeat 117/73, HR 89, RR 18, O2 saturation 93% on room air. -CBC CMP and liver panel troponin and urinalysis are all unremarkable. 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 2. History of transient global amnesia 2016, chronic, present -2016 transient global amnesia symptoms were similar such as repetitive verbiage/sentences, sporadic memory/time line recall/loss. -complete neurological workup at [facility]- unknown etiology. Differential diagnosis: stress/anxiety/seizure. 3. Cerebral aneurysm, 4 mm left MCA trifurcation, acute, present on admission -CTA demonstrated vascular stenosis or vascular dissection, 4 mm left MCA trifurcation cerebral aneurysm -ED Consults Dr. Rajput: Consultation #1:Spoke with Dr. Koroma, [facility] stroke team/neurology.? At this time will hold on tPA.? He will review with his attending provider.? CT head and angiogram have been sent to their facility. Consultation #2:Spoke with Dr. Koroma, tele stroke, he has reviewed with his attending, this is likely not TIA/stroke.? However patient could be admitted for observation MRI echo in the morning.? Patient can have outpatient referral for EEG to be done.? One of the differential diagnosis includes seizure.? Regarding the left MCA aneurysm can be followed up with neurosurgical services.? Patient is not tPA candidate -was notified by Dr. Lee WREN that [facility] neurology contacted him to advise that they implemented an immediate referral and will reach out and contact the patient within the next 4 weeks for outpatient follow-up and evaluation. 4. Hypertension, essential, acute on chronic, present on admission -ED with initial BP 173/107, Admit BP 152/101, continued tachycardic HR 117-likely secondary to anxiety. -EKG sinus tachycardia with a rate of [address] or T-wave changes I personally reviewed -continue lisinopril 5 mg -re-evaluation patient's vital signs returned to base line (120/80, HR 90's)-BP 117/73, HR 89. -patient reports that she has followed with her PCP and had evaluation for possible atrial fibrillation or tachyarrhythmia. Patient will continue to follow up outpatient with PCP. -initial troponin-WNL, will trend x3 -echo ordered for tomorrow 5. Glaucoma, acute on chronic, present on admission -continue dorzolamide-timolol (patient may use own supply) 6. Hypertriglyceridemia, chronic, present on admission -Continue Zeita Code status:Full Surrogate decision maker: Spouse COVID PCR:Negative DVT/VTE prophylaxis: Lovenox and SCDs Disposition: Patient is admitted for observation, to monitor overnight for any worsening or change in symptoms, trend troponins and complete echocardiogram in the morning. Expected length of stay less than 2 midnights. I have utilized all available immediate resources to obtain, update, or review the patient's current medications. I confirmed that the patient's advanced care plan is present, Code status is documented and/or surrogate decision maker is listed in the patient's medical record. I have personally reviewed patient's chart notes from PCP, specialists, diagnostic imaging, and laboratory, Time Spent With Patient Critical Care time: I spent a total of [] minutes of critical care time on this patient's care today; this time is exclusive of procedural time. Quality VTE Deep Vein Thrombosis/Pulmonary Embolism Present on Admission: No
--- NOTE | 2022-04-16 00:50 | PC.NURSE ---
Patient is alert and oriented with some short term memory loss but with NIH of 0. Breath sounds CTA with RA sat of 96%. HRR but tachy at 107 bpm. Initial BP this shift was elevated at 157/93 but at time of assessment was 136/89. Telemetry reading was initially ST but at 0000 was SR with rate in 80's. Denies nausea. BT present and abdomen is soft. Denies dysuria, frequency or urgency with urination. Independent with mobility. Instructed to call for assistance when getting up if feeling dizzy, lightheaded or weak; verbalizes understanding. Denies pain. Fall risk score is moderate.
[2022-04-16 01:13] VITALS: BP 117/73; PULSE 89; RESP 18; TEMP 36.4; O2SAT 93
[2022-04-16 02:24] LABS: Add Manual Diff / Slide Review NO; Basophils Absolute Auto 0 /uL (0-100); Basophils Percent Auto 0.6 % (0-2); Eosinophils Absolute Auto 300 /uL (0-450); Eosinophils Percent Auto 4.9 % (2-4); Hematocrit 42.1 % (36-46); Hemoglobin 14.3 g/dL (12.0-16.0); Lymphocytes Absolute Auto 2100 /uL (1100-4500); Mean Corpuscular HGB Conc 33.9 % (30-36); Mean Corpuscular Hemoglobin 29.7 PG (26-34); Mean Corpuscular Volume 87.7 fL (80-100); Monocytes Absolute Auto 600 /uL (0-900); Monocytes Percent Auto 10.7 % (3-14); Neutrophils Absolute Auto 2600 /uL (1500-7000); Neutrophils Percent Auto 46.8 % (50-75); Platelet Count 264 X10^3/uL (150-400); Red Cell Distribution Width 13.1 % (11.6-14.8); White Blood Cell Count 5.6 X10^3/uL (4.5-11.0)
[2022-04-16 02:29] LABS: Hemoglobin A1C% w Est Avg Glu 6.2 % (4.0-6.0)
[2022-04-16 02:31] LABS: BUN Creatinine Ratio 21.5 (6-22); Blood Urea Nitrogen 17 mg/dL (7-17); Calcium 8.9 mg/dL (8.4-10.2); Carbon Dioxide 25 mmol/L (22-32); Chloride 103 mmol/L (98-107); Cholesterol 241 mg/dL (140-199); Estimated Glomerular Filt Rate > 60 mL/min (>60); Glucose 98 mg/dL (80-110); HDL Cholesterol 46 mg/dL (40-60); HEMOLYSIS < 15 (0-50); Potassium 3.7 mmol/L (3.4-5.1); Sodium 138 mmol/L (137-145); Triglycerides 493 mg/dL (35-150)
[2022-04-16 02:43] LABS: Troponin I < 0.012 ng/mL (0.01-0.034)
[2022-04-16 05:08] VITALS: BP 118/75; PULSE 89; RESP 18; TEMP 36.4; O2SAT 93
[2022-04-16 08:35] LABS: Troponin I < 0.012 ng/mL (0.01-0.034)
[2022-04-16] MEDS: ASPIRIN EC 81 MG TABLET PO (08:39)
[2022-04-16] MEDS: ENOXAPARIN 40 MG/0.4 ML SYRINGE SUBCUT (08:39)
--- NOTE | 2022-04-16 08:48 | PC.NURSE ---
Assess- Patient is alert and oriented x4. She states that she still does not recall what happened to her or remember around the time of her mothers . She is ready to discharge home and is in the room now. at bedside.
--- NOTE | 2022-04-16 10:20 | PT.IIE ---
Surgical History (Last Reviewed 04/15/22 @ 20:58 by Allyn Appiah [facility]) Anesthesia History of section (1984) History of section (1986) History of section (1991) History of section (1993) History of dilation and curettage (1989) History of dilation and curettage (1991) Medical History (Last Reviewed 04/15[facility]22 @ 20:58 [facility] Abnormal Pap smear of cervix (1977) Ankle fracture (1959) Chicken pox (1955) Hypertension (2011) Mumps (1956) TGA (transient global amnesia) (05/2015) Physical Therapy Inpatient Evaluation/Re-Eval M1 PT/OT-IP Prior Functional Status Start: 04/16/22 13:14 Freq: NEEDED Status: Active Protocol: Document 04/16/22 10:20 AB (Rec[facility]22 [facility] Review Prior Functional Status Medical History Reviewed Yes Communication able to make needs known Mobility and Gait pt stated that she is indpeendent with all mobilities and ambulation without AD Social History Household Members spouse Living Arrangements House Number of Floors (Floors) Two Floors Number of Stairs To Enter/Railing? 6 steps R rail ascending 22 steps to bedroom level: first 1/2 with B rail and 2nd half with L rail +R wall Home Environment High Toilet,Walk in Shower Home Equipment Hand Held Shower M2 PT-IP Current Condition Start: 04/16/22 13:14 Freq: NEEDED Status: Active Protocol: Document 04/16/22 10:20 AB (Rec: 04/16/22 13:[email or web address] Physical Therapy Current Condition Current Condition Evaluation Date 04/16/22 Treatment Diagnosis transient global amnesia; difficulty in walking Onset Date 04/15/22 M3 PT-IP Subjective Start: 04/16/22 13:14 Freq: NEEDED Status: Active Protocol: Document 04/16/22 10:20 AB (Rec: 04/16/22 13:20 AB [email or web address]) Subjective Physical Therapy Visit Type Type Initial Evaluation Visit Start Time 10:20 Visit Stop Time 10:30 Total Visit Minutes 10 Number of BRATTICE BUILDER Visits 0 Physical Therapy Visit Comments Patient Comments agreeable to do PT M4 PT-IP Mobility and Gait Start: 04/16/22 13:14 Freq: NEEDED Status: Active Protocol: Document 04/16/22 10:20 AB (Rec: 04/16/22 13:20 AB [email or web address]) PT-Bed Mobility Assessment Supine to Sit Supine to Sit Independent Sit to Supine Sit to Supine Independent PT-Transfer Assessment Sit to and From Stand Sit to and from Stand Independent Equipment Transfer Assistive Device None Gait Assessment Gait Gait Assistance Required: Independent Distance (Feet) 150 Able to Maintain Weight Bearing Status Yes During Gait Assistive Devices Assistive Device None Orthotic/Prosthetic Devices or Brace: No Stair Climbing Assessment Evaluation Level of Assist On Stairs Independent Devices Stair Climbing Assistive Devices Left Railing Technique/Endurance Stair Climbing Direction Ascend and Descend Stair Climbing Technique Step Over Step Number of Steps Climbed 3 Query Text: Stair Climbing Set # Repetitions (reps) 2 PT-Balance Assessment Sitting Balance and Reactions Static Sitting Balance Ability Normal Dynamic Sitting Balance Ability Normal Standing Balance and Reactions Static Standing Balance Ability Normal Dynamic Standing Balance Ability Good M5 PT-IP Objective Assessments Start: 04/16/22 13:14 Freq: NEEDED Status: Active Protocol: Document 04/16/22 10:20 AB (Rec: 04/16/22 13:20 AB [email or web address]) Orientation Orientation/Cognition Level of Alertness Alert Orientation Name,Age,Birthday,Month,Date, Year,Day of Week,Place, Situation Language Function Ability No Deficits Noted Safety Awareness Understands Safety Issues Memory Description No Deficits Noted Gross Range of Motion Lower Extremity ROM Assessment Within Functional Limits Strength Lower Extremity Strength Assessment Within Functional Limits Coordination Assessment Gross Coordination Gross Coordination WNL Sensation Assessment Sensation Gross Sensation WNL Muscle Tone Muscle Tone WNL Yes M6 PT-IP Treatment Start: 04/16/22 13:14 Freq: NEEDED Status: Active Protocol: Document 04/16/22 10:20 AB (Rec: 04/16/22 13:20 AB [email or web address]) Physical Therapy Treatment Education Education Provided Safety M7 PT-IP Assessment and Plan Start: 04/16/22 13:14 Freq: NEEDED Status: Active Protocol: Document 04/16/22 10:20 AB (Rec: 04/16/22 13:20 AB [email or web address]) PT Summary Assessment and Plan Potential Rehabilitation Potential Fair Status of Condition at Evaluation Stable Summary Impairments Balance,Gait Assessment Summary PT eval completed and no further PT intervention indicated at this time. pt is at prior level of function. pt has her spouse to assist her if needed. Frequency of Treatment Frequency Of Treatment Discharge Recommendations To Nursing Amount of Assist Needed Standby Assistance Discharge Recommendations PT Discharge Recommendations Home Transportation Needs at Discharge Private Vehicle
--- NOTE | 2022-04-16 11:42 | ST.IPIE ---
Visit Care Team Role Provider Type Steph España DO Primary Care Provider Non-Staff Specialty: Medical Address: [address] [place] [address], [id number] Email: Nikolai Rajput MD Emergency Provider Physician Referring Provider Specialty: Emergency Medicine Address: [address] [place] [address], [phone] Email: José Miguel Lema MD Admit Provider Physician Attending Provider Specialty: Hospitalist Address: [address] [place] [address], [phone] Fax: Email: Past Medical History (Last Reviewed 04/15/22 @ 20:58 by Allyn Appiah [facility]) Abnormal Pap smear of cervix (Medical 1977) Ankle fracture (Medical 1959) Chicken pox (Medical 1955) Hypertension (Medical 2011) Mumps (Medical 1956) TGA (transient global amnesia) (Medical 05/2015) ST IP Initial Evaluation Report BONE WORKER Adult Cognitive Linguistic Eval Start: 04/16/22 11:31 Freq: Status: Active Protocol: Document 04/16/22 11:32 AUDI (Rec: 04/16/22 11:42 ZS [id number]) Adult Cognitive Linguistic Evaluation Session Time Visit Start Time 09:30 Visit Stop Time 09:45 Total Visit Minutes 15 Visit Information Visit Number Initial Evaluation Setting Assessment Location Acute Care Visit Type Note Type Initial evaluation Next Note Type Next Note Type Treatment Note Patient Information Identification Type Name Patient History Per H&P: Kana Davis is a chiquita 66-year-old female with a history of transient global amnesia(2015), glaucoma, hypertriglyceridemia, and essential hypertension who presented to the ED, brought here by for altered mental status/repeating questions onset at 1:00 p.m. this afternoon 1.5 hours prior to ED arrival.? Patient had attend her mother's the eulogy earlier in the day the patient was unable to recall the , Dr. Collins' s presence or speaking with him or that Andrew had occurred only a few days ago. The patient's reports that her symptoms have continued to improve in the ED and on the floor during admit exam. Patient's recall is still inconsistent and patchy. But she is able to converse easily, is relaxed and comfortable resting in bed. Patient's 2016 transient global amnesia symptoms were similar such as repetitive verbiage/sentences, sporadic memory/time line recall/loss. She had a complete neurological workup at [facility]- unknown etiology. Suspected causes significant stress and anxiety and or possible seizure activity. Patient denies history of TIA, stroke, seizure, drugs or alcohol use. Patient denies headache, fever, body aches, chills, cough, congestion, upper respiratory symptoms, numbness , tingling, weakness, difficulty with speech, impaired fine motor skills, ambulation, swallowing, falls, abdominal pain, nausea, vomiting, diarrhea, hematemesis, hematuria, melena , urinary symptoms, skin wounds are infections, recent head injury or loss of consciousness, new or different medications recent illness (exposure) injury or trauma. Patient verbalizes a significant amount of stress and anxiety recently, and appears anxious. During admit exam patient did demonstrate cyclic repetitive questions, demonstrating lack of retention/comprehension of questions and answers. 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 I felt that as we conversed it did not reflect her cognitive functional baseline of knowledge experience an information. Head CT and brain MRI were negative for any acute processes at this time. 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 Language(s) Spoken in the Home [place] Education Level Bachelor's in Nursing Hearing Hearing Level Normal Vision Vision Status Not Impaired Previous Therapy Previous Speech-Language Therapy No Subjective Patient Report Pt was semi-reclined in bed with at bedside when BONE WORKER arrived. She repositioned herself to more upright position to complete assessment. Pt reported she had an episode similar to this several years ago while her was living and working in [place] and she associates the episodes with higher stress times in her life. Pt added her youngest daughter has epilepsy and stated pt's expression was similar to that of people having a seizure when the episode started this time. Pt stated memory from during previous event did not return, but memories from before and after event returned. She added she is currently able to remember everything before event started and since getting the EKG in the hospital, but does not remember events between giving the eulogy at her mother's to starting the EKG. Mental Status Alert,Responsive,Cooperative Informal Assessment Receptive Language Normal Yes Expressive Language Normal Yes Pragmatic Language Normal Yes Speech Normal Yes Cognition Normal Yes Formal Assessment Standardized Test/Screener Type [facility] Mental Status (UMS) Administration Complete Results Results of the [facility] place pt' s score at 29/30, indicating cognitive skills are WNL. Pt missed a point on recall of 1/ 5 items and she attributed this to a poor night's sleep, stating she usually has very good recall. Pt presents with cognitive skills intact other than amnesia for about 2 hours during her mother's . Speech therapy is not indicated at this time as pt does not present with cognitive deficits outside of amnesia event. Findings/Results Language Function Within normal limits Cognitive Function Within normal limits Prognosis Prognosis Good Based on Cognitive status,Family support,Duration of symptoms/ severity,Time since onset Plan of Care Speech-Language Treatment No Patient/Caregiver Education Described results of evaluation,Patient expressed understanding of evaluation, Patient expressed agreement with goals and treatment plans ,Family/caregivers expressed understanding of evaluation, Family/caregivers expressed agreement with goals and treatment plan Discharge Recommendations Home
--- NOTE | 2022-04-16 13:52 | PM.DS.1 ---
History of Present Illness History of Present Illness Chief complaint: global amnesia event Narrative: 66-year-old female with a history of transient global amnesia(2016), glaucoma, hypertriglyceridemia, and essential hypertension who presented to the ED, brought here by for altered mental status/repeating questions onset at 1:00 p.m. this afternoon 1.5 hours prior to ED arrival.? Patient had attend her mother's the eulogy earlier in the day the patient was unable to recall the , Dr. Collins's presence or speaking with him or that [place] had occurred only a few days ago.? The patient's reports that her symptoms have continued to improve in the ED and on the floor during admit exam.? Patient's recall is still inconsistent and patchy.? But she is able to converse easily, is relaxed and comfortable resting in bed.? Patient's 2016 transient global amnesia symptoms were similar such as repetitive verbiage/sentences, sporadic memory/time line recall/loss.? She had a complete neurological workup at [facility]- unknown etiology.? Suspected causes significant stress and anxiety and or possible seizure activity.? Patient denies history of TIA, stroke, seizure, drugs or alcohol use. Patient denies headache, fever, body aches, chills, cough, congestion, upper respiratory symptoms, numbness, tingling, weakness, difficulty with speech, impaired fine motor skills, ambulation, swallowing, falls, abdominal pain, nausea, vomiting, diarrhea, hematemesis, hematuria, melena, urinary symptoms, skin wounds are infections, recent head injury or loss of consciousness, new or different medications recent illness (exposure) injury or trauma.? Patient verbalizes a significant amount of stress and anxiety recently, and appears anxious.? During admit exam patient did demonstrate cyclic repetitive questions, demonstrating lack of retention/comprehension of questions and answers.? 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 I felt that as we conversed it did not reflect her cognitive functional baseline of knowledge experience an information. Patient presented to the ED with initial BP 173/107, the time of admit temp 98.3?, BP 152/101, continues to be tachycardic HR 117, RR 16, O2 saturation 96% on room air.? Patient's CBC CMP and liver panel troponin and urinalysis are all unremarkable, NIH:0 in ED.? EKG sinus tachycardia with a rate of [address] or T-wave changes I personally reviewed.? Head CT and brain MRI were negative for any acute processes at this time.? 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 See notes regarding Dr. Rajput ED consult with [facility] neurosurgery.? Patient admitted for altered mental status, TIA versus transient global amnesia. Per Dr. Rajput (ED):Consultation #1:Spoke with Dr. Koroma, [facility] stroke team/neurology.? At this time will hold on tPA.? He will review with his attending provider.? CT head and angiogram have been sent to their facility.Time: 16:32 Consultation #2:Spoke with Dr. Koroma, tele stroke, he has reviewed with his attending, this is likely not TIA/stroke.? However patient could be admitted for observation MRI echo in the morning.? Patient can have outpatient referral for EEG to be done.? One of the differential diagnosis includes seizure.? Regarding the left MCA aneurysm can be followed up with neurosurgical services.? Patient is not tPA candidate Time: 16:43 Discharge Providers Provider Date of admission: 04/15/22 17:45 Discharge Date: 04/16/22 Primary care physician: Steph España DO Consults: 04/15/22 18:30 Consult to Occupational Therapy Evaluate & Treat Comment: Physician Instructions: Evaluate and treat Consult to Physical Therapy Evaluate & Treat Comment: Physician Instructions: Evaluate and Treat Consult to Speech Therapy Evaluate & Treat Comment: Physician Instructions: Evaluate and treat Discharge provider: Freedom Alfonso MD Summary Hospital Course Discharge Diagnosis: 1. Transient global amnesia 2. 4 mm left middle cerebral artery aneurysm noted on CTA 3. Chronic ischemic small-vessel disease change noted on MRI 4. Hypertension, acute and chronic Head/neck CTA:1. No acute intracranial disease process. ? 2. No large vessel occlusion, hemodynamically significant vascular stenosis or vascular dissection. ? 3.? 4 millimeter left MCA trifurcation cerebral aneurysm.? Recommend neurosurgical consultation. Brain MRI:No findings of acute or subacute infarction can be seen.? ? Note is made of age-appropriate brain parenchymal volume loss and chronic small vessel ischemic changes. Echo with bubble study:The patient was in sinus rhythm with heart rates between 74-81 bpm during the exam. ? The left ventricle is normal in size and wall thickness. There is no thrombus. The ejection fraction is estimated to be 55-60%. ? The right ventricle is normal in size and function. ? No significant valvular pathology seen. ? There is no Doppler evidence for an interatrial shunt. Injection of contrast documented no interatrial shunt. ? No significant atherosclerotic plaque seen in the aortic arch. ? The IVC is of normal diameter and collapses greater than 50% with a sniff. This suggests a low right atrial pressure of 3 mm Hg. Hospital Course: As noted patient was admitted with acute amnesia recent events. She gradually ER and overnight hospital stay. She appears completely back to baseline mentation as of this morning. Brain MRI was unremarkable. 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 These findings were discussed with neuro surgery phone consult at [place] and the neurosurgery office will be contacting patient to set up an appointment within next month. The echo was unremarkable. Patient's is were initially quite elevated it come down without specific intervention. She was running mildly elevated blood pressures prior to discharge and will monitor home BP and follow he on further management. Normally her blood pressure is well controlled. This is patient's 2nd episode of TGA with last episode about 6 years ago. She will have PCP for her to Neurology. Discussed her getting a sleep-deprived EEG to evaluate for seizure causing these episodes. Status at Discharge Cognitive/behavioral status at discharge: oriented Functional status at discharge: independent ambulation Overall status at discharge: patient is back to baseline Time Spent with Patient Time spent: Greater than 30 minutes Exam Vital Signs (past 8 hours): - 04/16/22 10:11 Oxygen Delivery Method Room Air Oxygen Delivery Method Room Air Oxygen Flow Rate 0 Narrative Exam Narrative: General: Alert pleasant female in no distress Neurological: Affect normal, speech normal without aphasia, no facial droop comp nystagmus or gaze palsy, extremities well, immediate memory recall is normal Objective Labs Result Diagrams: 04/16/22 02:07 04/16/22 02:07 Labs: Laboratory Results - last 24 hr 04/15/22 04/15/22 04/15/22 15:25 15:25 15:25 WBC 5.8 RBC 4.97 Hgb 15.3 Hct 43.5 MCV 87.5 MCH 30.8 MCHC 35.2 RDW 13.2 Plt Count 282 Neut % (Auto) 60.5 Lymph % (Auto) 27.9 [place] % (Auto) 6.6 Eos % (Auto) 4.3 H Baso % (Auto) 0.7 Neut # (Auto) 3500 Lymph # (Auto) 1600 [place] # (Auto) 400 Eos # (Auto) 300 Baso # (Auto) 0 PT 11.8 INR 1.0 APTT 31 Sodium 139 Potassium 4.1 Chloride 100 Carbon Dioxide 26 BUN 14 Creatinine 0.71 Estimated GFR > 60 BUN/Creatinine Ratio 19.7 Glucose 102 Hemoglobin A1c Calcium 9.1 Total Bilirubin 0.5 AST 34 ALT 27 Alkaline Phosphatase 78 Total Creatine Kinase 125 CK-MB (CK-2) 0.97 CK-MB (CK-2) Rel Index 0.8 L Troponin I < 0.012 Total Protein 9.1 H Albumin 4.8 Globulin 4.3 H Albumin/Globulin Ratio 1.1 Triglycerides Cholesterol LDL Cholesterol, Calc HDL Cholesterol Urine Color Urine Appearance Urine pH Ur Specific [place] Urine Protein Urine Glucose (UA) Urine Ketones Urine Occult Blood Urine Nitrate Urine Bilirubin Urine Urobilinogen Ur Leukocyte Esterase Urine RBC Urine WBC Ur Squamous Epith Cells Urine Bacteria Ur Culture Indicated? SARS-CoV-2 (PCR) 04/15/22 04/15/22 04/15/22 17:35 18:05 18:05 WBC RBC Hgb Hct MCV MCH MCHC RDW Plt Count Neut % (Auto) Lymph % (Auto) [place] % (Auto) Eos % (Auto) Baso % (Auto) Neut # (Auto) Lymph # (Auto) [place] # (Auto) Eos # (Auto) Baso # (Auto) PT INR APTT Sodium Potassium Chloride Carbon Dioxide BUN Creatinine Estimated GFR BUN/Creatinine Ratio Glucose Hemoglobin A1c Calcium Total Bilirubin AST ALT Alkaline Phosphatase Total Creatine Kinase CK-MB (CK-2) CK-MB (CK-2) Rel Index Troponin I Total Protein Albumin Globulin Albumin/Globulin Ratio Triglycerides Cholesterol LDL Cholesterol, Calc HDL Cholesterol Urine Color Yellow Urine Appearance Clear Urine pH 7.0 Ur Specific [place] <=1.005 Urine Protein Negative Urine Glucose (UA) Negative Urine Ketones Negative Urine Occult Blood Negative Urine Nitrate Negative Urine Bilirubin Negative Urine Urobilinogen 0.2 Ur Leukocyte Esterase Trace H Urine RBC 0-1/hpf Urine WBC None seen Ur Squamous Epith Cells 0-1 /hpf Urine Bacteria None seen Ur Culture Indicated? Cult not indicated SARS-CoV-2 (PCR) Cancelled Negative 04/16/22 04/16/22 04/16/22 02:07 02:07 02:07 WBC 5.6 RBC 4.80 Hgb 14.3 Hct 42.1 MCV 87.7 MCH 29.7 MCHC 33.9 RDW 13.1 Plt Count 264 Neut % (Auto) 46.8 L Lymph % (Auto) 37.0 [place] % (Auto) 10.7 Eos % (Auto) 4.9 H Baso % (Auto) 0.6 Neut # (Auto) 2600 Lymph # (Auto) 2100 [place] # (Auto) 600 Eos # (Auto) 300 Baso # (Auto) 0 PT INR APTT Sodium 138 Potassium 3.7 Chloride 103 Carbon Dioxide 25 BUN 17 Creatinine 0.79 Estimated GFR > 60 BUN/Creatinine Ratio 21.5 Glucose 98 Hemoglobin A1c 6.2 H Calcium 8.9 Total Bilirubin AST ALT Alkaline Phosphatase Total Creatine Kinase CK-MB (CK-2) CK-MB (CK-2) Rel Index Troponin I Total Protein Albumin Globulin Albumin/Globulin Ratio Triglycerides 493 H Cholesterol 241 H LDL Cholesterol, Calc TNP HDL Cholesterol 46 Urine Color Urine Appearance Urine pH Ur Specific [place] Urine Protein Urine Glucose (UA) Urine Ketones Urine Occult Blood Urine Nitrate Urine Bilirubin Urine Urobilinogen Ur Leukocyte Esterase Urine RBC Urine WBC Ur Squamous Epith Cells Urine Bacteria Ur Culture Indicated? SARS-CoV-2 (PCR) 04/16/22 04/16/22 02:07 07:53 WBC RBC Hgb Hct MCV MCH MCHC RDW Plt Count Neut % (Auto) Lymph % (Auto) [place] % (Auto) Eos % (Auto) Baso % (Auto) Neut # (Auto) Lymph # (Auto) [place] # (Auto) Eos # (Auto) Baso # (Auto) PT INR APTT Sodium Potassium Chloride Carbon Dioxide BUN Creatinine Estimated GFR BUN/Creatinine Ratio Glucose Hemoglobin A1c Calcium Total Bilirubin AST ALT Alkaline Phosphatase Total Creatine Kinase CK-MB (CK-2) CK-MB (CK-2) Rel Index Troponin I < 0.012 < 0.012 Total Protein Albumin Globulin Albumin/Globulin Ratio Triglycerides Cholesterol LDL Cholesterol, Calc HDL Cholesterol Urine Color Urine Appearance Urine pH Ur Specific [place] Urine Protein Urine Glucose (UA) Urine Ketones Urine Occult Blood Urine Nitrate Urine Bilirubin Urine Urobilinogen Ur Leukocyte Esterase Urine RBC Urine WBC Ur Squamous Epith Cells Urine Bacteria Ur Culture Indicated? SARS-CoV-2 (PCR) [facility] Medical History Abnormal Pap smear of cervix (1977) Ankle fracture (1959) Chicken pox (6) Hypertension (2011) Mumps (1956) TGA (transient global amnesia) (05/2015) Surgical History Anesthesia History of section (1984) History of section (1986) History of section (1991) History of section (1993) History of dilation and curettage (1989) History of dilation and curettage (1991) Family History Father Cardiomyopathy Bladder cancer Heart disease Hypertension Stroke Cancer Mother Arthritis Vaginal cancer Cancer Mental health problem Brother Meniere's disease Sister No problems noted. Grandfather RI (myocardial infarction) Heart disease Grandmother Kidney failure Social History household members: spouse Smoking Status: Never smoker alcohol intake: never Discharge Plan Discharge Plan Patient Disposition: Home Provider Discharge Comment: You were diagnosed with transient global amnesia. MRI does not show any evidence of TIA or stroke. The report does mention chronic small vessel disease which is a common finding and may be related to long-term effects of hypertension. ECHO report is pending (will call with results). Head CTA showed a 4 mm left middle cerebral artery aneurysm. This is considered an incidental finding. The neurosurgery clinic at [facility] is supposed to contact you to set up evaluation in the next month. Please have your PCP refer you to Neurology clinic to get sleep-deprived EEG for evaluation of possible seizure causing transient global amnesia. Monitor blood pressures at home and follow up with PCP for BP management. Discharge orders & Medications Prescriptions: Continued aspirin 81 mg tablet,delayed release (DR/EC) 81 mg PO DAILY latanoprost 0.005 % drops 1 drp EYE-BOTH DAILY lisinopril 5 mg tablet 5 mg PO DAILY dorzolamide-timolol 22.3-6.8 mg/mL drops 1 drp EYE-BOTH BID ezetimibe 10 mg tablet 10 mg PO DAILY Follow up/Referrals: Steph España DO [Primary Care Provider] - Diet/Activity/Treatments Diet: Regular Visit Report/Discharge Packet Instructions: DI for Amnesia, Amnesia, DI for Transient Global Amnesia Discharge Data Primary Care Provider: Steph España Attending Provider: José Miguel Lema VTE Deep Vein Thrombosis/Pulmonary Embolism Present on Admission: No
== END 2022-04-16 10:59 | disposition home or self-care (01) ==
LOC: ED 17:45 → AC 17:46
PROVIDERS: Admitting Provider Internal Medicine; Emergency Provider Emergency Medicine; PCP Family Medicine; Referring Provider Emergency Medicine; Visit Provider Internal Medicine
DX: R29.818 Other symptoms and signs involving the nervous system (principal); I10 Essential (primary) hypertension; E78.1 Pure hyperglyceridemia; H40.9 Unspecified glaucoma; G45.4 Transient global amnesia; I67.1 Cerebral aneurysm, nonruptured; Z20.822 Contact with and (suspected) exposure to COVID-19
CPT/HCPCS: 36415; 70450; 70496; 70498; 70551; 80048; 80053; 80061; 81001; 82550; 82553; 82962; 83036; 84484; 85025; 85610; 85730; 87635; 92523; 93306; 96372; 97161; 99285; C9803; G0378; J1650; Q9967

== ENCOUNTER → 2022-06-17 12:23 | Outpatient (CLI) | payer MEDICARE, OTHER, SELFPAY ==
[2022-04-15 18:37] VITALS: BMI 25.2
--- NOTE | 2022-06-17 | DI.MG.S_ITS ---
BILATERAL DIGITAL SCREENING MAMMOGRAM 3D/2D WITH CAD: 06/17/2022 CLINICAL: Routine screening. Comparison is made to exams dated: 06/07/2021 mammogram, 05/14/2020 mammogram - [facility], and 03/29/2019 mammogram - outside location. There are scattered areas of fibroglandular density in both breasts (category b / 25%-50% glandular tissue). Current study was also evaluated with a Computer Aided Detection (CAD) system. No significant masses, calcifications, or other findings are seen in either breast. There has been no significant interval change. IMPRESSION: NEGATIVE There is no mammographic evidence of malignancy. A 1 year screening mammogram is recommended. Based on the Tyrer Cuzick model (a risk assessment model) the patient's lifetime risk is 5.5% and her 10 year risk is 3.0%. According to the ACR, ACS, and NCCN guidelines, an annual breast MRI exam along with mammogram is recommended if the patient's lifetime risk is 20% or greater. This exam was interpreted at Station ID: [id number]. NOTE: For mammograms, a report in lay terms will be sent to the patient. Approximately 15% of breast malignancies will not be visualized mammographically. In the management of a palpable breast mass, a negative mammogram must not discourage biopsy of a clinically suspicious lesion. Electronically Signed By: Thien Abel M.D., jr/[place]:06/17/2022 13:27:33 letter sent: Normal Exam ACR BI-RADS Category 1: Negative 3341F
--- NOTE | 2022-06-17 | DI.RAD.S_ITS ---
PROCEDURE: XR DEXA AXIAL SKELETON INDICATIONS: Asymptomatic menopausal state COMPARISON: [facility], CR, XR DEXA AXIAL SKELETON, 05/14/2020, 12:50. FINDINGS: This blank DEXA report has been sent in error by the PACS system. The correct and complete report will be forthcoming in 1-2 days. Thank you for your patience and understanding. Dictated by: Chantell Enriquez M.D. on 06/19/2022 at 8:30 Approved by: Chantell Enriquez M.D. on 07/10/2022 at 13:50
== END ==
PROVIDERS: PCP Family Medicine; Referring Provider Family Medicine; Visit Provider Family Medicine
DX: Z12.31 Encounter for screening mammogram for malignant neoplasm of breast (principal); Z78.0 Asymptomatic menopausal state; Z13.820 Encounter for screening for osteoporosis; M85.852 Other specified disorders of bone density and structure, left thigh
CPT/HCPCS: 77063; 77067; 77080

== ENCOUNTER → 2022-08-12 13:07 | Outpatient (CLI) | payer MEDICARE, OTHER, SELFPAY ==
[2022-04-15 18:37] VITALS: BMI 25.2
--- NOTE | 2022-08-12 | DI.CT.S_ITS ---
PROCEDURE: CT HEAD/BRAIN WO CON INDICATIONS: Cerebral aneurysm, nonruptured TECHNIQUE: Noncontrast 4.5 mm thick angled axial sections acquired from the foramen magnum to the vertex, with coronal and sagittal reformats. For radiation dose reduction, the following was used: automated exposure control, adjustment of mA and/or kV according to patient size. COMPARISON: [facility], CT, CT ANGIO HEAD AND NECK, 04/15/2022, 15:33. [facility], CT, CT STROKE, 04/15/2022, 15:33. [facility], CT, HEAD WITHOUT CONTRAST, 06/07/2015, 12:18. FINDINGS: Image quality: Excellent. CSF spaces: Basal cisterns are patent. No extra-axial fluid collections. The ventricles are symmetric in size and shape. Brain: Aneurysm clipping can be seen involving the left MCA trifurcation region. No intracranial bleeds or masses. There is cerebral volume loss for age, with resultant ventricular and sulcal prominence. There are periventricular and deep white matter chronic small vessel ischemic changes. There is intracranial internal carotid artery atherosclerosis. Symmetric calcification can be seen involving the basal ganglia, which is considered to be normal for age. Skull and face: Left-sided craniotomy change is seen. Calvarium and visualized facial bones appear intact, without suspicious lesions. Sinuses: Visualized sinuses and mastoids are clear. IMPRESSION: Postoperative study within normal limits, with placement of a left MCA trifurcation aneurysm clip. Dictated by: Cedrick Harris M.D. on 08/12/2022 at 12:42 Approved by: Cedrick Harris M.D. on 08/12/2022 at 12:44
== END ==
PROVIDERS: PCP Family Medicine; Referring Provider Physician Assistant; Visit Provider Physician Assistant
DX: I67.1 Cerebral aneurysm, nonruptured (principal)
CPT/HCPCS: 70450

== ENCOUNTER → 2023-06-18 16:01 | Outpatient (CLI) | payer MEDICARE, OTHER, SELFPAY ==
[2022-04-15 18:37] VITALS: BMI 25.2
--- NOTE | 2023-06-18 16:02 | DI.MG.S_ITS ---
BILATERAL DIGITAL SCREENING MAMMOGRAM 3D/2D WITH CAD: 06/18/2023 CLINICAL: Routine screening. Comparison is made to exams dated: 06/17/2022 mammogram, 06/07/2021 mammogram, and 05/14/2020 mammogram - [facility]. Both breasts are almost entirely fatty (category a/<25% glandular tissue). Current study was also evaluated with a Computer Aided Detection (CAD) system. No significant masses, calcifications, or other findings are seen in either breast. There has been no significant interval change. IMPRESSION: NEGATIVE There is no mammographic evidence of malignancy. A 1 year screening mammogram is recommended. Based on the Tyrer Cuzick model (a risk assessment model) the patient's lifetime risk is 3.4% and her 10 year risk is 2.0%. According to the ACR, ACS, and NCCN guidelines, an annual breast MRI exam along with mammogram is recommended if the patient's lifetime risk is 20% or greater. This exam was interpreted at Station ID: [id number]. NOTE: For mammograms, a report in lay terms will be sent to the patient. Approximately 15% of breast malignancies will not be visualized mammographically. In the management of a palpable breast mass, a negative mammogram must not discourage biopsy of a clinically suspicious lesion. Electronically Signed By: Urvashi zarate/[place]:06/19/2023 09:13:53 letter sent: Normal Exam ACR BI-RADS Category 1: Negative 3341F
== END ==
PROVIDERS: PCP Family Medicine; Referring Provider Family Medicine; Visit Provider Family Medicine
DX: Z12.31 Encounter for screening mammogram for malignant neoplasm of breast (principal)
CPT/HCPCS: 77063; 77067

== ENCOUNTER 2024-05-05 07:24 | Emergency (ER) | payer MEDICARE, OTHER, SELFPAY ==
[2022-04-15 18:37] VITALS: BMI 25.2
[2024-05-05] VITALS (12 sets, daily range): BP systolic 143–183; BP diastolic 86–113; PULSE 100–111; RESP 16–20; TEMP 36.8; O2SAT 95–99; BMI 26.9
--- NOTE | 2024-05-05 07:41 | DI.RAD.S_ITS ---
PROCEDURE: XR CHEST 1V INDICATIONS: chest pain TECHNIQUE: One view of the chest was acquired. COMPARISON: None. FINDINGS: Surgical changes and devices: None. Lungs and pleura: Lungs are clear. No pleural effusions or pneumothorax. Mediastinum: Mediastinal contours appear normal. Heart size is normal. Bones and chest wall: No suspicious bony lesions. Overlying soft tissues appear unremarkable. IMPRESSION: No acute cardiopulmonary abnormality is seen. Approved by: Giovanni Mathis M.D. on 05/05/2024 at 8:08
--- NOTE | 2024-05-05 07:42 | DI.CT.S_ITS ---
PROCEDURE: CT HEAD/BRAIN WO CON INDICATIONS: confusion TECHNIQUE: Noncontrast 4.5 mm thick angled axial sections acquired from the foramen magnum to the vertex, with coronal and sagittal reformats. For radiation dose reduction, the following was used: automated exposure control, adjustment of mA and/or kV according to patient size. COMPARISON: [facility], CT, CT HEAD/BRAIN WO CON, 08/12/2022, 13:16. FINDINGS: Image quality: Diagnostic. CSF spaces: Basal cisterns are patent. No extra-axial fluid collections. The ventricles are symmetric in size and shape. Brain: No intracranial bleeds or masses. There is cerebral volume loss for age, with resultant ventricular and sulcal prominence. Left MCA distribution aneurysm clip. There are periventricular and deep white matter chronic small vessel ischemic changes. There is intracranial internal carotid artery atherosclerosis. Skull and face: Remote left frontal temporal craniotomy. Calvarium and visualized facial bones appear intact, without suspicious lesions. Sinuses: Visualized sinuses and mastoids are clear. IMPRESSION: No acute intracranial pathology. Dictated by: Gavino Mosley M.D. on 05/05/2024 at 8:16 Approved by: Gavino Mosley M.D. on 05/05/2024 at 8:18
--- NOTE | 2024-05-05 07:42 | DI.CT.S_ITS ---
PROCEDURE: CT ANGIO HEAD AND NECK INDICATIONS: confusion TECHNIQUE: After the administration of intravenous contrast, 1 mm thick sections acquired from the aortic arch through the [place] of [place]. 3-dimensional aplqxto-szlitcmaz-ebwnvrhrtj (MIP) and/or volume rendering reformats were acquired of the central intracranial vasculature and neck separately. For radiation dose reduction, the following was used: automated exposure control, adjustment of mA and/or kV according to patient size. COMPARISON: [facility], CT, CT HEAD/BRAIN WO CON, 05/05/2024, 7:58. [facility], CT, CT ANGIO HEAD AND NECK, 04/15/2022, 15:33. FINDINGS: Image quality: Diagnostic. BRAIN: Please see separately dictated noncontrast CT of the head. No suspicious intracranial enhancement. HEAD CT ANGIOGRAPHY: Anterior circulation: Aneurysm clip is noted in the right MCA territory. Intracranial internal carotid arteries are normal in size and flow. Hypoplastic or aplastic A1 segment of the right anterior cerebral artery. The distal right GERDA is primarily fat the a patent anterior communicating artery. The flow within the paired anterior cerebral arteries is normal and symmetric. The flow within the middle cerebral arteries is normal and symmetric. The anterior communicating artery is seen. No aneurysms are seen. Posterior circulation: Visualized portions of the vertebral arteries demonstrate normal caliber, and join to form a normal appearing basilar artery. type origin of the right NURSING COORDINATOR. Flow within the posterior cerebral arteries is normal and symmetric. No aneurysms are seen. NECK CT ANGIOGRAPHY: Carotid system: The great vessels demonstrate a conventional anatomy as they arise from the aortic arch. The origins of the common carotid arteries appear patent. The common carotid arteries demonstrate normal caliber and courses. The bifurcation regions are both widely patent. The internal carotid arteries demonstrate normal calibers and courses. Posterior circulation: The origins of the vertebral arteries both appear widely patent. The more superior extracranial portions of both vertebral arteries also demonstrate normal courses and calibers. They join to form a normal appearing basilar artery. Soft tissues: Visualized neck soft tissues demonstrate no suspicious abnormalities. Bones: No suspicious bony lesions. Multilevel degenerative changes are seen in the included spine. IMPRESSION: 1. No significant intracranial arterial abnormality is seen. 2. Left MCA aneurysm clip. No recurrent intracranial aneurysm is seen. 3. No significant abnormality is seen within the arteries of the neck. Any quantitative measurements of stenosis were performed using NASCET criteria. Approved by: Giovanni Mathis M.D. on 05/05/2024 at 8:27
--- NOTE | 2024-05-05 07:46 | EKG_ITS ---
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
[2024-05-05 07:55] LABS: Add Manual Diff / Slide Review NO; Basophils Absolute Auto 0 /uL (0-100); Basophils Percent Auto 0.9 % (0-2); Eosinophils Absolute Auto 300 /uL (0-450); Eosinophils Percent Auto 6.2 % (2-4); Hematocrit 45.5 % (36-46); Hemoglobin 15.7 g/dL (12.0-16.0); Lymphocytes Absolute Auto 1700 /uL (1100-4500); Lymphocytes Percent Auto 35.4 % (25-40); Mean Corpuscular HGB Conc 34.4 % (30-36); Mean Corpuscular Hemoglobin 30.3 PG (26-34); Monocytes Absolute Auto 400 /uL (0-900); Monocytes Percent Auto 7.6 % (3-14); Neutrophils Absolute Auto 2400 /uL (1500-7000); Neutrophils Percent Auto 49.9 % (50-75); Platelet Count 264 X10^3/uL (150-400); Red Blood Cell Count 5.17 X10^6/uL (4.0-5.2); Red Cell Distribution Width 13.8 % (11.6-14.8); White Blood Cell Count 4.8 X10^3/uL (4.5-11.0)
[2024-05-05 08:02] LABS: Prothrombin Time 11.2 SECONDS (9.4-12.5)
[2024-05-05 08:04] LABS: PTT Partial Thromboplastin Tim 23 SECONDS (25.1-36.5)
--- NOTE | 2024-05-05 08:33 | ED_ITS ---
HPI - Neuro Symptoms/Deficit General Chief Complaint: Neuro Symptoms/Deficit Stated Complaint: Memory loss? Time Seen by Provider: 05/05/24 07:42 Source: EMS History of Present Illness HPI Narrative: Patient is a 68-year-old female history of transient global amnesia (2015, 2021), aneurysm with clips, glaucoma hypertriglyceridemia essential hypertension presents to the ED with altered mental status. She apparently called 911 possibly for her who may have had a syncopal episode however when EMS was on scene it was clear that she was very confused she was transported to the emergency department the was not. She is awake alert unable to remember how she got to the hospital does not remember calling 911 not sure why she was here. She is able to move all extremities denies feeling ill has no other complaints. I called and spoke with the on the phone. He reports that he is positive for COVID he thinks he is dehydrated he had a vasovagal episode today. She heard a crash when he passed out and called 911. However once EMS arrived she was very confused and having amnesia. He reports that she has had 2 episodes of transient global amnesia in the past this presentation is very similar. 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 I encouraged him to drink fluids and kept in the emergency department even call 911 if he needs to wear happy to help him. On Anticoagulants: No Related Data Home Medications Medication Instructions Recorded Confirmed aspirin 81 mg tablet,delayed 81 mg PO DAILY 04/30/21 04/15/22 release latanoprost 0.005 % eye drops 1 drp EYE-BOTH DAILY 04/30/21 04/15/22 lisinopril 5 mg tablet 5 mg PO DAILY 04/30/21 04/15/22 dorzolamide 22.3 mg-timolol 6.8 1 drp EYE-BOTH BID 04/15/22 04/15/22 mg/mL eye drops ezetimibe 10 mg tablet 10 mg PO DAILY 04/15/22 04/15/22 Allergies Allergy/AdvReac Type Severity Reaction Status Date / Time No Known Drug Allergies Allergy Verified 05/05/24 07:36 Review of Systems Hematologic/Lymphatic On Anticoagulants: No Patient History Medical History Abnormal Pap smear of cervix (1977) Ankle fracture (1959) Chicken pox (1956) Hypertension (2011) Mumps (195) TGA (transient global amnesia) (05/2015) Surgical History Anesthesia History of section (1984) History of section (1986) History of section (1991) History of section (1993) History of dilation and curettage (1989) History of dilation and curettage (1991) Family History Father Cardiomyopathy Bladder cancer Heart disease Hypertension Stroke Cancer Mother Arthritis Vaginal cancer Cancer Mental health problem Brother Meniere's disease Sister No problems noted. Grandfather CO (myocardial infarction) Heart disease Grandmother Kidney failure Social History household members: spouse Smoking Status: Never smoker alcohol intake: never Smoking Status: Never smoker Exam Initial Vital Signs Initial Vital Signs: Vital Signs Temperature 98.2 F 05/05/24 07:27 Pulse Rate 101 H 05/05/24 07:27 Respiratory Rate 19 05/05/24 07:27 Blood Pressure 180/109 H 05/05/24 07:27 Pulse Oximetry 97 05/05/24 07:27 Oxygen Delivery Method Room Air 05/05/24 07:27 GENERAL: Alert pleasant 68-year-old female and in no acute distress. HEENT: Head atraumatic,EOMI, pupils reactive, face symmetric, moist mucous membranes CARDIOVASCULAR: Regular rate and rhythm without murmurs, rubs or gallops. RESPIRATORY: Breath sounds equal bilaterally, no wheezes rales or rhonchi. ABDOMEN: Soft, nontender. Normoactive bowel sounds all 4 quadrants. No guarding or rebound. EXTREMITIES: Normal range of motion, no clubbing or edema. Neurovascularly intact NEUROLOGICAL: Alert and oriented x3.Normal gait and speech. Cranial nerves II through XII grossly intact. Good bzgfrn-dg-loxp, good jhjf-ch-rorn, strength equal bilaterally, no dysarthria or aphasia, sensation in tact to soft touch bilaterally, no visual changes, no facial droop SKIN: Warm, dry, no laceration, no petechiae, no rashes or lesions. Course Orders Ordered: ED Orders 05/05/24 09:47 MR head/brain wo con Stat Vital Signs Vital signs: Vital Signs - 8 hr 05/05/24 11:39 05/05/24 11:42 05/05/24 11:42 Pulse Rate 111 H 104 H Blood Pressure 147/89 H Pulse Oximetry 96 95 Oxygen Delivery Method Room Air MDM - Neuro Symptoms/Deficit Lab Data 05/05/24 07:44 05/05/24 08:17 Labs: Lab Results 05/05/24 05/05/24 05/05/24 Range/Units 07:44 08:17 08:53 WBC 4.8 (4.5-11.0) X10^3/uL RBC 5.17 (4.0-5.2) X10^6/uL Hgb 15.7 (12.0-16.0) g/dL Hct 45.5 (36-46) % MCV 88.0 (80-100) fL MCH 30.3 (26-34) PG MCHC 34.4 (30-36) % RDW 13.8 (11.6-14.8) % Plt Count 264 (150-400) X10^3/uL Neut % (Auto) 49.9 L (50-75) % Lymph % (Auto) 35.4 (25-40) % Crisp % (Auto) 7.6 (3-14) % Eos % (Auto) 6.2 H (2-4) % Baso % (Auto) 0.9 (0-2) % Neut # (Auto) 2400 (9418-1511) /uL Lymph # (Auto) 1700 (1250-2726) /uL Crisp # (Auto) 400 (0-900) /uL Eos # (Auto) 300 (0-450) /uL Baso # (Auto) 0 (0-100) /uL PT 11.2 (9.4-12.5) SECONDS INR 1.0 (0.9-1.3) APTT 23 L (25.1-36.5) SECONDS Sodium 135 L (137-145) mmol/L Potassium 4.5 (3.4-5.1) mmol/L Chloride 102 (98-107) mmol/L Carbon Dioxide 25 (22-32) mmol/L BUN 15 (7-17) mg/dL Creatinine 0.89 (0.52-1.04) mg/dL Estimated GFR > 60 (>60) mL/min BUN/Creatinine Ratio 16.9 (6-22) Glucose 122 H (80-110) mg/dL Calcium 9.2 (8.4-10.2) mg/dL Magnesium 2.1 (1.6-2.3) mg/dL Total Bilirubin 0.6 (0.2-1.3) mg/dL AST 35 (14-36) IU/L ALT 26 (<35) IU/L Alkaline Phosphatase 55 (38-126) U/L Total Creatine Kinase 126 (30-135) U/L Troponin I < 0.012 (0.01-0.034) ng/mL NT-Pro-B Natriuret Pep < 20 (<125) pg/mL Total Protein 7.6 (6.3-8.2) g/dL Albumin 4.4 (3.5-5.0) g/dL Globulin 3.2 (1.7-4.1) g/dL Albumin/Globulin Ratio 1.4 (1.0-2.8) Lipase 172 (23-300) U/L SARS-CoV-2 (PCR) Negative (Negative) Influenza A (RT-PCR) Flu a negative (NEGATIVE) Influenza B (RT-PCR) Flu b negative (NEGATIVE) RSV (PCR) Negative (Negative) Urine Dip Bedside Urine Glucose Negative Bedside Urine Bilirubin - Negative Bedside Urine Ketone - Negative Urine Specific [place] 1.005 Bedside Urine Occult Blood - Negative Bedside Urine pH 7 Bedside Urine Protein - Negative Bedside Urine Urobilinogen - Negative Bedside Urine Nitrite - Negative Bedside Urine Leukocytes - Negative Esterase Imaging Data CT scan - head: Radiologist's Impression: PROCEDURE: CT HEAD/BRAIN WO CON INDICATIONS: confusion TECHNIQUE: Noncontrast 4.5 mm thick angled axial sections acquired from the foramen magnum to the vertex, with coronal and sagittal reformats. For radiation dose reduction, the following was used: automated exposure control, adjustment of mA and/or kV according to patient size. COMPARISON: [facility], CT, CT HEAD/BRAIN WO CON, 08/12/2022, 13:16. FINDINGS: Image quality: Diagnostic. CSF spaces: Basal cisterns are patent. No extra-axial fluid collections. The ventricles are symmetric in size and shape. Brain: No intracranial bleeds or masses. There is cerebral volume loss for age, with resultant ventricular and sulcal prominence. Left MCA distribution aneurysm clip. There are periventricular and deep white matter chronic small vessel ischemic changes. There is intracranial internal carotid artery atherosclerosis. Skull and face: Remote left frontal temporal craniotomy. Calvarium and visualized facial bones appear intact, without suspicious lesions. Sinuses: Visualized sinuses and mastoids are clear. IMPRESSION: No acute intracranial pathology. Dictated by: Gavino Mosley M.D. on 05/05/2024 at 8:16 CTA - brain/neck: Radiologist's Impression: PROCEDURE: CT ANGIO HEAD AND NECK INDICATIONS: confusion TECHNIQUE: After the administration of intravenous contrast, 1 mm thick sections acquired from the aortic arch through the [place] of [place]. 3-dimensional bazblwb-anwtsexdd-lxcqfeogjh (MIP) and/or volume rendering reformats were acquired of the central intracranial vasculature and neck separately. For radiation dose reduction, the following was used: automated exposure control, adjustment of mA and/or kV according to patient size. COMPARISON: [facility], CT, CT HEAD/BRAIN WO CON, 05/05/2024, 7:58. [facility], CT, CT ANGIO HEAD AND NECK, 04/15/2022, 15:33. FINDINGS: Image quality: Diagnostic. BRAIN: Please see separately dictated noncontrast CT of the head. No suspicious intracranial enhancement. HEAD CT ANGIOGRAPHY: Anterior circulation: Aneurysm clip is noted in the right MCA territory. Intracranial internal carotid arteries are normal in size and flow. Hypoplastic or aplastic A1 segment of the right anterior cerebral artery. The distal right GERDA is primarily fat the a patent anterior communicating artery. The flow within the paired anterior cerebral arteries is normal and symmetric. The flow within the middle cerebral arteries is normal and symmetric. The anterior communicating artery is seen. No aneurysms are seen. Posterior circulation: Visualized portions of the vertebral arteries demonstrate normal caliber, and join to form a normal appearing basilar artery. type origin of the right [employer]ING [employer]OR. Flow within the posterior cerebral arteries is normal and symmetric. No aneurysms are seen. NECK CT ANGIOGRAPHY: Carotid system: The great vessels demonstrate a conventional anatomy as they arise from the aortic arch. The origins of the common carotid arteries appear patent. The common carotid arteries demonstrate normal caliber and courses. The bifurcation regions are both widely patent. The internal carotid arteries demonstrate normal calibers and courses. Posterior circulation: The origins of the vertebral arteries both appear widely patent. The more superior extracranial portions of both vertebral arteries also demonstrate normal courses and calibers. They join to form a normal appearing basilar artery. Soft tissues: Visualized neck soft tissues demonstrate no suspicious abnormalities. Bones: No suspicious bony lesions. Multilevel degenerative changes are seen in the included spine. IMPRESSION: 1. No significant intracranial arterial abnormality is seen. 2. Left MCA aneurysm clip. No recurrent intracranial aneurysm is seen. 3. No significant abnormality is seen within the arteries of the neck. Any quantitative measurements of stenosis were performed using NASCET criteria. Approved by: Giovanni Mathis M.D. on 05/05/2024 at 8:27 MR brain: Radiologist's Impression: PROCEDURE: MR HEAD/BRAIN WO CON INDICATIONS: TGA vs CVA TECHNIQUE: Non-contrast axial T1 spin echo, axial T2 fast spin echo, sagittal and axial FLAIR, coronal T2 fast spin echo, axial gradient echo, axial diffusion and ADC through the brain. COMPARISON: [facility], CT, CT HEAD/BRAIN WO CON, 05/05/2024, 7:58. [facility], MR, MR HEAD/BRAIN WO CON, 04/15/2022, 18:00. FINDINGS: Image quality: Excellent. CSF spaces: Ventricles appear symmetric in size and shape. Basal cisterns are patent. No extra-axial fluid collections. Brain: No acute intracranial hemorrhage or mass effect. There is cerebral volume loss for age. There are periventricular and deep white matter chronic small vessel ischemic changes. Brainstem appears normal. Diffusion-weighted images show no acute infarct. No chronic ischemic insults. Normal intravascular flow voids are present. Metal artifact is seen adjacent to the left MCA related to known aneurysm clip. Skull and face: Calvarial bone marrow is normal in signal. Orbits are normal. Sinuses: Sinuses and mastoids are clear. IMPRESSION: 1. No acute intracranial hemorrhage or recent infarct. 2. Chronic microvascular ischemic changes and generalized parenchymal volume loss. Approved by: Giovanni Mathis M.D. on 05/05/2024 at 11:36 ECG Data Attestation: I personally reviewed and interpreted this ECG as follows: Prior ECG tracings: available for review Interpretation: Normal sinus rhythm rate 99 AZ interval 142 QRS [address] changes similar to previous EKGs MDM Narrative Medical decision making narrative: MDM CC: Confusion Complicating co-morbidities: TGA 2015 and 2021 left MCA aneurysm with repair hypertension Data collected from: EMS and has been Medical records reviewed: Previous admission for TGA in 2021 Differential considered: Transient global amnesia, TIA CVA infection Exam documented above, pertinent findings include: Patient is mildly confused can not remember events of the morning, but otherwise no focal deficits Lab Test results independently reviewed as above. Pertinent findings: WBC 4.8 hemoglobin 15.7 hematocrit 45.5 platelets 264 Sodium 135 potassium 4.5 chloride 102 carbon dioxide 25 BUN 15 creatinine 0.89 glucose 122 Bilirubin 0.6 AST 35 ALT 26 alk-phos 55 Troponin negative Independently reviewed EKG as above Sinus rhythm without ischemia similar to prior Imaging studies independently reviewed: Noncontrast head CT no intracranial hemorrhage or mass CT head and neck angio left MCA aneurysm clip MR negative Consultations: None Treatments: None Re-evaluations: Patient did not have her MRI card however lots of digging we did find the make and model which is MRI compatible. MRI was done and does not show evidence of acute stroke Discussion: Patient 68-year-old female presenting today with amnesia. She really has no other focal deficits. She was starting to clear in the emergency department. Workup is otherwise negative. Her has been has COVID however she tested negative. At this time this is a similar presentation this is happened to her before. Both patient and has been feel comfortable going home. Blood work and other workup in the emergency department is otherwise unremarkable Implants CLIP ANEURYSM T2 8MM 10.5MM STD SLIGHT BENT - [id number] Clip CLIP ANEURYSM T2 8MM 10.5MM STD SLIGHT BENT ? [employer] ? Left 1 Implanted CLIP ANEURYSM T2 4MM 5.5MM MINI CURVE DUP USE [id number] - [id number] Clip CLIP ANEURYSM T2 4MM 5.5MM MINI CURVE DUP USE [id number] ? [employer] ? Left 1 Implanted Clip Status Implanted on Expiration Date CLIP ANEURYSM T2 8MM 10.5MM STD SLIGHT BENT - [id number] Implanted 07/01/2022 CLIP ANEURYSM T2 4MM 5.5MM MINI CURVE DUP USE [id number] - [id number] Implanted 07/01/2022 CLIP ANEURYSM T2 5MM 7MM MINI TEMP BENT - [id number] Used, Not Implanted Graft TISSUE GRAFT DURAGEN PLUS BOVINE [id number] - [id number] Implanted 07/01/2022 03/19/2025 Plate COVER COLLEEN HOLE MICRO 14MM W/TAB - [id number] Implanted 07/01/2022 PLATE UN3 CRANIOMAXILLOFAC 2H LP 12MM DOG - [id number] Implanted 07/01/2022 Screw SCREW UNIV NEURO 3 1.5MM 4MM SELF DRILL [id number] - [id number] Implan Discharge Plan Departure Patient Disposition: Home Clinical Impression: Transient global amnesia Activity Restrictions/Additional Instructions: *You have been diagnosed with transient global amnesia *What to do: At this time please go home monitor stay hydrated. You are negative for COVID *Continue to take medications as directed *Follow up with your primary care provider in 2-3 days or call [phone] *Return to ER if you should have increased confusion weakness numbness tingling or any new, worsening or concerning symptoms Prescriptions: No Action aspirin 81 mg tablet,delayed release (DR/EC) 81 mg PO DAILY latanoprost 0.005 % drops 1 drp EYE-BOTH DAILY lisinopril 5 mg tablet 5 mg PO DAILY dorzolamide-timolol 22.3-6.8 mg/mL drops 1 drp EYE-BOTH BID ezetimibe 10 mg tablet 10 mg PO DAILY Referrals: Steph España DO [Primary Care Provider] - Stand Alone Forms: Patient Portal/API/Survey
[2024-05-05 08:50] LABS: Alanine Aminotransferase 26 IU/L (<35); Albumin 4.4 g/dL (3.5-5.0); Albumin Globulin Ratio 1.4 (1.0-2.8); Alkaline Phosphatase 55 U/L (38-126); Aspartate Aminotransferase 35 IU/L (14-36); BUN Creatinine Ratio 16.9 (6-22); Bilirubin Total 0.6 mg/dL (0.2-1.3); Blood Urea Nitrogen 15 mg/dL (7-17); Calcium 9.2 mg/dL (8.4-10.2); Carbon Dioxide 25 mmol/L (22-32); Chloride 102 mmol/L (98-107); Creatine Kinase 126 U/L (30-135); Estimated Glomerular Filt Rate > 60 mL/min (>60); Globulin 3.2 g/dL (1.7-4.1); Glucose 122 mg/dL (80-110); HEMOLYSIS < 15 (0-50); Lipase 172 U/L (23-300); Magnesium 2.1 mg/dL (1.6-2.3); Potassium 4.5 mmol/L (3.4-5.1); Sodium 135 mmol/L (137-145); Total Protein 7.6 g/dL (6.3-8.2)
[2024-05-05 09:02] LABS: NT-proBNP (BNP-Adult 18+) < 20 pg/mL (<125); Troponin I < 0.012 ng/mL (0.01-0.034)
[2024-05-05 09:36] LABS: COVID-19 CEPHEID 4-PLEX PCR Negative (Negative); Influenza A - CEPHEID Flu A NEGATIVE (NEGATIVE); Influenza B - CEPHEID Flu B NEGATIVE (NEGATIVE); Respiratory Syncytial Virus Negative (Negative)
--- NOTE | 2024-05-05 09:47 | DI.MRI.S_ITS ---
PROCEDURE: MR HEAD/BRAIN WO CON INDICATIONS: TGA vs CVA TECHNIQUE: Non-contrast axial T1 spin echo, axial T2 fast spin echo, sagittal and axial FLAIR, coronal T2 fast spin echo, axial gradient echo, axial diffusion and ADC through the brain. COMPARISON: [facility], CT, CT HEAD/BRAIN WO CON, 05/05/2024, 7:58. [facility], MR, MR HEAD/BRAIN WO CON, 04/15/2022, 18:00. FINDINGS: Image quality: Excellent. CSF spaces: Ventricles appear symmetric in size and shape. Basal cisterns are patent. No extra-axial fluid collections. Brain: No acute intracranial hemorrhage or mass effect. There is cerebral volume loss for age. There are periventricular and deep white matter chronic small vessel ischemic changes. Brainstem appears normal. Diffusion-weighted images show no acute infarct. No chronic ischemic insults. Normal intravascular flow voids are present. Metal artifact is seen adjacent to the left MCA related to known aneurysm clip. Skull and face: Calvarial bone marrow is normal in signal. Orbits are normal. Sinuses: Sinuses and mastoids are clear. IMPRESSION: 1. No acute intracranial hemorrhage or recent infarct. 2. Chronic microvascular ischemic changes and generalized parenchymal volume loss. Approved by: Giovanni Mathis M.D. on 05/05/2024 at 11:36
== END 2024-05-05 12:11 | disposition home or self-care (01) ==
PROVIDERS: Emergency Provider Emergency Medicine; PCP Family Medicine
DX: G45.4 Transient global amnesia (principal); I10 Essential (primary) hypertension; R07.9 Chest pain, unspecified; Z20.822 Contact with and (suspected) exposure to COVID-19; Z86.16 Personal history of COVID-19
CPT/HCPCS: 0241U; 36415; 70450; 70496; 70498; 70551; 71045; 80053; 81003; 82550; 83690; 83735; 83880; 84484; 85025; 85610; 85730; 93005; 93010; 99284; Q9967

== ENCOUNTER → 2024-06-22 17:38 | Outpatient (CLI) | payer MEDICARE, OTHER, SELFPAY ==
[2022-04-15 18:37] VITALS: BMI 25.2
--- NOTE | 2024-06-22 17:40 | DI.MG.S_ITS ---
MM screening mammo BI: 06/22/2024. BI-RADS: 1 CLINICAL: 68-year old female for bilateral screening mammogram. Tyrer-Cuzick lifetime risk of 2.2%. No personal or first-degree family history of breast cancer. PRIOR EXAMS 06/18/2023, 06/17/2022, 06/07/2021, 05/14/2020. MAMMOGRAPHY TECHNIQUE: 2D and 3D (tomosynthesis) digital mammographic views obtained, with additional images as needed for full coverage. Current study was also evaluated with a Computer Aided Detection (CAD) system. DENSITY A. The breasts are almost entirely fatty. MAMMOGRAPHY FINDINGS Bilateral: No suspicious mass, asymmetry, microcalcification, or other abnormality seen. IMPRESSION: * No evidence of malignancy. RECOMMENDATIONS Bilateral * Annual screening mammography. OVERALL ASSESSMENT CATEGORY BI-RADS-1: Negative. The [employer] recommends annual screening mammography beginning at age 40 for women with average risk of breast cancer. ELECTRONICALLY SIGNED: Xiang Kelley M.D. on 06/23/2024 at 05:53:44 PM Interpreting Station ID: [id number]
== END ==
PROVIDERS: PCP Family Medicine; Referring Provider Family Medicine; Visit Provider Family Medicine
DX: Z12.31 Encounter for screening mammogram for malignant neoplasm of breast (principal); R92.313 Mammographic fatty tissue density, bilateral breasts
CPT/HCPCS: 77063; 77067